=== PATIENT | male | born 1975 | race Caucasian/White ===

== ENCOUNTER 2018-01-22 10:22 | Inpatient (IN) | payer MEDICARE, OTHER ==
[~2018-01-22] VITALS: Ht 160 cm; Wt 150.1 kg
[2018-01-22] MEDS ORDERED: 1/2 NS IV SOLUTION 1,000 ML IV PRN (10:40)
[2018-01-22] MEDS ORDERED: POTASSIUM CHLORIDE INJ 20 MEQ in NS IV 1000 ML 1,000 ML IV SCH (10:40)
[2018-01-22] MEDS ORDERED: ONDANSETRON 4 MG (ZOFRAN) ORAL DISSOLVE TAB SL PRN ×2 (10:45→17:30)
[2018-01-22] MEDS ORDERED: ALPRAZolam 0.25 MG (XANAX) TAB PO PRN (10:45)
[2018-01-22] MEDS ORDERED: CALCIUM CARBONATE 500 MG (TUMS) TAB.CHEW PO PRN (10:45)
[2018-01-22] MEDS ORDERED: SENNA W/DOCUSATE (SENOKOT S) TABLET PO PRN (10:45)
[2018-01-22] MEDS ORDERED: ONDANSETRON 4 MG/2 ML (SDV) Z0FRAN IVP PRN (10:45)
[2018-01-22] MEDS ORDERED: DOCUSATE SODIUM 100 MG (COLACE) CAP PO PRN (10:45)
[2018-01-22] MEDS ORDERED: LORazepam INJ 2 MG/ML (ATIVAN) VIAL IM/IV PRN (10:45)
[2018-01-22] MEDS ORDERED: ENOXAPARIN 40 MG/0.4 ML (LOVENOX) SYR SC SCH (10:45)
[2018-01-22] MEDS ORDERED: ONDANSETRON 4 MG/2 ML (SDV) Z0FRAN IV PRN (10:45)
[2018-01-22] MEDS ORDERED: ANTACID SUSP 30 ML UDC (MYLANTA) PO PRN ×2 (10:45→17:00)
[2018-01-22] MEDS ORDERED: LORazepam INJ 2 MG/ML (ATIVAN) VIAL IV PRN (10:45)
[2018-01-22] MEDS ORDERED: ACETAMINOPHEN 500 MG TAB (TYLENOL) PO PRN (10:45)
[2018-01-22] MEDS ORDERED: LORazepam 1 MG (ATIVAN) TAB PO PRN (10:45)
[2018-01-22] MEDS ORDERED: D5 1/2 NS 1000 ML IV SOLUTION 1,000 ML IV PRN (10:45)
[2018-01-22] MEDS ORDERED: FLU QUADRIvalent (5+ YOA) 2018-2019 (AFLURIA) 0.5 ML IM ONE ×2 (12:45→14:51)
[2018-01-22 13:00] LABS: BILIRUBIN,URINE NEGATIVE (NEGATIVE); CLARITY,URINE CLEAR; COLOR,URINE YELLOW; GLUCOSE, URINE (UA) NEGATIVE (NEGATIVE); KETONES,URINE NEGATIVE (NEGATIVE); LEUKOCYTE ESTERASE ,URINE NEGATIVE (NEGATIVE); NITRITE,URINE NEGATIVE (NEGATIVE); PH,URINE 5 (5-9); PROTEIN,URINE NEGATIVE (NEGATIVE); UROBILINOGEN,URINE NORMAL (NORMAL)
[2018-01-22 13:08] LABS: BACTERIA,URINE NEGATIVE /HPF; SQUAMOUS EPITHELIAL CELL,UR 0-2 /HPF; WBC,URINE RARE /HPF
[2018-01-22] MEDS ORDERED: BUSP10TA95 PO (13:54)
[2018-01-22] MEDS ORDERED: TIZA4TAB3 PO (13:54)
[2018-01-22] MEDS ORDERED: FLUT1DIS26 IH (13:54)
[2018-01-22] MEDS ORDERED: PALI234D IM (13:54)
[2018-01-22] MEDS ORDERED: IBUP-30 PO (13:54)
[2018-01-22] MEDS ORDERED: GABA800T2 PO (13:54)
[2018-01-22] MEDS ORDERED: ASPI-920 PO (13:54)
[2018-01-22] MEDS ORDERED: OXYC20OR15 PO (13:54)
[2018-01-22] MEDS ORDERED: FLUT16SP22 NS (13:54)
[2018-01-22] MEDS ORDERED: MELA5CAP PO (13:54)
[2018-01-22] MEDS ORDERED: UMEC62.5 IH (13:54)
[2018-01-22] MEDS ORDERED: SODI45SP9 NS (13:54)
[2018-01-22] MEDS ORDERED: MAG30ORA2 PO (13:54)
[2018-01-22] MEDS ORDERED: ONDA4TAB8 SL (13:54)
[2018-01-22] MEDS ORDERED: INSU100I29 SQ (13:54)
[2018-01-22] MEDS ORDERED: RANI150T90 PO (13:54)
[2018-01-22] MEDS ORDERED: MAGN400O7 PO (13:54)
[2018-01-22] MEDS ORDERED: LISI40TA PO (13:54)
[2018-01-22] MEDS ORDERED: GLUC1KIT IM (13:54)
[2018-01-22] MEDS ORDERED: CLOZ25TA3 PO (13:54)
[2018-01-22] MEDS ORDERED: INSU100I14 SQ (13:54)
[2018-01-22] MEDS ORDERED: DULA1.5P2 SQ (13:54)
[2018-01-22] MEDS ORDERED: MULT-406 PO (13:54)
[2018-01-22] MEDS ORDERED: CHLO25TA22 PO (13:54)
[2018-01-22] MEDS ORDERED: GUAI600T43 PO (13:54)
[2018-01-22] MEDS ORDERED: CLON1TAB13 PO (13:54)
[2018-01-22] MEDS ORDERED: SPIR25TA PO (13:54)
[2018-01-22] MEDS ORDERED: ACET325T38 PO (13:54)
[2018-01-22] MEDS ORDERED: CLOZ50TA PO (13:54)
[2018-01-22] MEDS ORDERED: CETI10TA17 PO (13:54)
[2018-01-22] MEDS ORDERED: DICL100G18 TP (13:54)
[2018-01-22] MEDS ORDERED: IPRA3AMP31 NEB (13:54)
[2018-01-22] MEDS ORDERED: ATOR40TA70 PO (13:54)
[2018-01-22] MEDS ORDERED: METO-395 PO (13:54)
[2018-01-22] MEDS ORDERED: BISM262O27 PO (13:54)
[2018-01-22] MEDS ORDERED: ACAM333T8 PO (13:54)
[2018-01-22] MEDS ORDERED: TOPI50TA13 PO (13:54)
[2018-01-22] MEDS ORDERED: CELE200C PO (13:54)
[2018-01-22] MEDS: NS W/KCL 20 MEQ/L 1,000 ML IV SCH ×2 (14:43→23:39)
[2018-01-22] MEDS: fentaNYL INJECTION 100 MCG/2 ML AMP IVP PRN ×2 (14:43→18:06)
[2018-01-22] MEDS: ENOXAPARIN 60 MG/0.6 ML (LOVENOX) SYR SC SCH ×2 (14:55→23:38)
[2018-01-22 16:18] VITALS: BP 133/82
[2018-01-22] MEDS ORDERED: DICLOFENAC SODIUM 4 GM TP PRN (17:00)
[2018-01-22] MEDS ORDERED: BISMUTH SUBSALICYLATE PO PRN (17:00)
[2018-01-22] MEDS ORDERED: MILK OF MAGNESIA 400 MG/5 ML 30 ML UDC PO PRN (17:00)
[2018-01-22] MEDS ORDERED: CITRIC ACID PO PRN (17:00)
[2018-01-22] MEDS ORDERED: NON-FORMULARY MEDICATION 1 EA EA (Gabapentin 800 MG) PO SCH (17:00)
[2018-01-22] MEDS ORDERED: NON-FORMULARY MEDICATION 1 EA EA (Clozapine 50 MG) PO SCH (17:00)
[2018-01-22] MEDS ORDERED: ONDANSETRON 4 MG SL PRN (17:00)
[2018-01-22] MEDS ORDERED: SOD BICARB PO PRN (17:00)
[2018-01-22] MEDS ORDERED: SODIUM CHLORIDE NS PRN (17:00)
[2018-01-22] MEDS ORDERED: NON-FORMULARY MEDICATION 1 EA EA (Melatonin 5 MG) PO PRN (17:00)
[2018-01-22] MEDS ORDERED: ACETAMINOPHEN 325 MG TABLET PO PRN (17:00)
[2018-01-22] MEDS ORDERED: [UNRECOGNIZED DRUG - OTHER] NS PRN (17:00)
[2018-01-22] MEDS ORDERED: [UNRECOGNIZED DRUG - OTHER] PO PRN (17:00)
[2018-01-22] MEDS ORDERED: RT-ALBUTEROL/IPRATROPIUM 3 ML (DUONEB) VIAL INH PRN (17:00)
[2018-01-22] MEDS ORDERED: ASPIRIN PO PRN (17:00)
[2018-01-22] MEDS ORDERED: OXYCODONE PO SCH (17:00)
[2018-01-22] MEDS ORDERED: NON-FORMULARY MEDICATION 1 EA EA (Buspirone HCl 20 MG) PO SCH (17:00)
[2018-01-22] MEDS ORDERED: PALIPERIDONE PALMITATE 234 MG IM SCH (17:00)
--- NOTE | 2018-01-22 17:03 | History & Physical-Hospitalist ---
History of Present Illness HPI/Chief Complaint CC: Hyponatremia at 112 HPI: This is a 42yoWM new resident of [facility] as of 2 weeks ago to be closer to his sister who lives in [place] who moved from [place], [place] and also has a guardian who was admitted after Reba Mastersan called me for a direct admit after baseline labs revealed sodium level was 112. Pt was maintained on his regular meds and [facility] had no prior lab levels but he was maintained on Chlorthalidone 25mg which has been stopped. Pt ceased ETOH use 5 yrs ago but he does smoke and does not use a CPAP which appears that he has undx SADA due to his habitus. Patient was restarted on all of his home meds except any and all meds that could have contributed to the low sodium level. He is unsure if he has had this issue before. Source: patient, RN/MD Exam Limitations: no limitations Date Seen 01/22/18 Time Seen by a Provider: 16:45 Attending Physician Malini Rae DO [facility] Referring Physician Date of Admission Jan 22, 2018 at 11:53 Home Medications & Allergies Home Medications Reviewed patient Home Medication Reconciliation performed by pharmacy medication reconciliations instrument and control technician and/or nursing. Patients Allergies have been reviewed. Allergies Allergies Coded Allergies pecan nut (Verified Allergy, Unknown, 01/22/18) tramadol (Verified Allergy, Unknown, 01/22/18) walnut (Verified Allergy, Unknown, 01/22/18) Past Qixbcsg-Cfuqim-Ufkqfj Hx Past Med/Social Hx: Reviewed Nursing Past Med/Soc Hx, Reviewed and Corrections made Patient Social History Marrital Status: single Employed/Student: unemployed Alcohol Use: Past History Number of Drinks Today: 0 Recreational Drug Use: Yes (Marijuana) Drug of Choice: Marijuana Smoking Status: Current Everyday Smoker Type Used: Cigarettes Physical Abuse Screen: No Sexual Abuse: No Recent Foreign Travel: No Contact w/other who traveled: No Recent Hopitalizations: No Recent Infectious Disease Expo: No Immunizations Up To Date Date of Pneumonia Vaccine: Mar 26, 2013 Seasonal Allergies Seasonal Allergies: Yes Past Medical History Respiratory: Asthma, COPD, Emphysema, Sleep Apnea Currently Using CPAP: No Currently Using BIPAP: No Cardiac: High Cholesterol, Hypertension Neurological: Developmental Disorder Sexually Transmitted Disease: No HIV/AIDS: No Gastrointestinal: Gastroesophageal Reflux, Hepatitis Endocrine: Diabetes, Insulin dep Are Your Blood Sugars Over 250: No Psychosocial: Sleep Difficulties, Anxiety, Bipolar, Depression History of Blood Disorders: No Adverse Reaction to Blood [place]: No Family History Cardiovascular disease 19 FATHER, Onset:40's - 50 Hypertension Review of Systems Constitutional: see HPI, weakness EENTM: no symptoms reported Respiratory: no symptoms reported Cardiovascular: no symptoms reported Gastrointestinal: no symptoms reported Genitourinary: no symptoms reported Musculoskeletal: no symptoms reported Skin: no symptoms reported Psychiatric/Neurological: No Symptoms Reported All Other Systems Reviewed Negative Unless Noted: Yes Physical Exam Physical Exam Vital Signs Vital Signs - First Documented 01/22/18 01/22/18 01/22/18 01/22/18 01/22/18 13:54 14:14 14:26 16:18 20:52 Temp 97.3 Pulse 75 Resp 20 B/P (MAP) 133/82 (99) Pulse Ox 90 O2 Delivery Room Air O2 Flow Rate 2.00 FiO2 21 Capillary Refill : Height, Weight, BMI Height: 5'3.00" Weight: 331lbs. 0.0oz. 150.977255ml; 58.6 BMI Method: General Appearance: No Apparent Distress, WD/WN, Chronically ill, Obese Eyes: Bilateral Eye Normal Inspection, Bilateral Eye PERRL HEENT: PERRL/EOMI, Normal ENT Inspection, Pharynx Normal Neck: Full Range of Motion, Normal Inspection, Non Tender, Supple, Carotid Bruit Respiratory: Chest Non Tender, Lungs Clear, Normal Breath Sounds, No Accessory Muscle Use, No Respiratory Distress Cardiovascular: Regular Rate, Rhythm, No Edema, No Gallop, No JVD, No Murmur, Normal Peripheral Pulses Gastrointestinal: Normal Bowel Sounds, No Organomegaly, No Pulsatile Mass, Non Tender, Soft Back: Normal Inspection, No CVA Tenderness, No Vertebral Tenderness Extremity: Normal Capillary Refill, Normal Inspection, Normal Range of Motion, Non Tender, No Calf Tenderness, No Pedal Edema Neurologic/Psychiatric: Alert, Oriented x3, No Motor/Sensory Deficits, Normal Mood/Affect Skin: Normal Color, Warm/Dry Lymphatic: No Adenopathy Results Results/Procedures Labs Laboratory Tests 01/22/18 20:12 Patient resulted labs reviewed. Assessment/Plan Admission Diagnosis Assessment: Severe hyponatremia of 112 on baseline labs Schizophrenia Chronic disability COPD Current smoker Presumed SADA Morbid obesity Chronic pain DM insulin dependent Plan: Fluid restriction 800cc IVF NS Home meds Hold Chlorthalidone Admission Status: Inpatient Order (span 2 midnights) Reason for Inpatient Admission: Severe hyponatremia of 112 will require 3 days of IVF Diagnosis/Problems Diagnosis/Problems (1) Hyponatremia Status: Acute (2) Schizophrenia Status: Chronic Qualifiers: Schizophrenia type: unspecified Qualified Codes: F20.9 - Schizophrenia, unspecified (3) COPD (chronic obstructive pulmonary disease) Status: Chronic Qualifiers: COPD type: unspecified COPD Qualified Codes: J44.9 - Chronic obstructive pulmonary disease, unspecified (4) SADA (obstructive sleep apnea) Status: Chronic (5) Obesity Status: Chronic Qualifiers: Obesity type: due to excess calories Obesity classification: adult class 3 (BMI >= 40) Serious obesity comorbidity presence: with serious comorbidity Body mass index: BMI 50.0-59.9 Qualified Codes: E66.01 - Morbid (severe) obesity due to excess calories; Z68.43 - Body mass index (BMI) 50-59.9, adult Clinical Quality Measures DVT/VTE Risk/Contraindication: Risk Factor Score Per Nursin RFS Level Per Nursing on Admit: 4+=Very High MALINI RAE DO Jan 22, 2018 17:03
[2018-01-22] MEDS ORDERED: DICLOFENAC 1% GEL 100 GM (VOLTAREN) TUBE TOP PRN (17:15)
[2018-01-22] MEDS ORDERED: SALINE NASAL SPRAY (OCEAN) 45 ML BTL PRN (17:15)
[2018-01-22] MEDS ORDERED: MELATONIN 3 MG TABLET PO PRN (17:30)
[2018-01-22] MEDS ORDERED: ONDANSETRON 4 MG (ZOFRAN) ORAL DISSOLVE TAB PO PRN (17:30)
[2018-01-22] MEDS ORDERED: BISMUTH SUBSALICYLATE 240 ML (PEPTO BISMOL) PO PRN (17:45)
[2018-01-22] MEDS: GABAPENTIN 400 MG (NEURONTIN) CAP PO SCH (18:03)
[2018-01-22] MEDS: cloZAPine 25 MG (CLOZARIL) TAB PO SCH (18:03)
[2018-01-22 20:10] VITALS: BP 128/72
[2018-01-22 20:23] LABS: BASOPHILS % (AUTO) 0 % (0-10); EOSINOPHILS # (AUTO) 0.1 10^3/uL (0.0-0.3); EOSINOPHILS % (AUTO) 1 % (0-10); HEMATOCRIT 32 % (40-54); HEMOGLOBIN 11.3 G/DL (13.3-17.7); LYMPHOCYTES # (AUTO) 1.4 X 10^3 (1.0-4.0); LYMPHOCYTES % (AUTO) 17 % (12-44); MEAN CORPUSCULAR HEMOGLOBIN 29 PG (25-34); MEAN CORPUSCULAR HGB CONC 36 G/DL (32-36); MEAN CORPUSCULAR VOLUME 82 FL (80-99); MEAN PLATELET VOLUME 10.4 FL (7.4-10.4); MONOCYTES # (AUTO) 0.6 X 10^3 (0.0-1.0); MONOCYTES % (AUTO) 8 % (0-12); NEUTROPHILS # (AUTO) 6.3 X 10^3 (1.8-7.8); NEUTROPHILS % (AUTO) 75 % (42-75); PLATELET COUNT 235 10^3/uL (130-400); RED CELL DISTRIBUTION WIDTH 14.9 % (10.0-14.5); WHITE BLOOD COUNT 8.4 10^3/uL (4.3-11.0)
[2018-01-22 20:39] LABS: INR 1.1 (0.8-1.4); PROTHROMBIN TIME PATIENT 13.8 SEC (12.2-14.7)
[2018-01-22 20:48] LABS: ALANINE AMINOTRANSFERASE 37 U/L (0-55); ALBUMIN 4.2 GM/DL (3.2-4.5); ALKALINE PHOSPHATASE 65 U/L (40-136); BILIRUBIN,TOTAL 0.5 MG/DL (0.1-1.0); BUN/CREATININE RATIO 11; CALCIUM 9.7 MG/DL (8.5-10.1); CARBON DIOXIDE 27 MMOL/L (21-32); CHLORIDE 85 MMOL/L (98-107); GFR ESTIMATED > 60; GLUCOSE 166 MG/DL (70-105); POTASSIUM 3.7 MMOL/L (3.6-5.0); TOTAL PROTEIN 6.9 GM/DL (6.4-8.2)
[2018-01-22] MEDS: RT-ALBUTEROL/IPRATROPIUM 3 ML (DUONEB) VIAL INH SCH (20:50)
[2018-01-22] MEDS: RT-ADVAIR HFA 115/21 MCG PER PUFF IH SCH (20:50)
[2018-01-22 20:51] LABS: SODIUM 125 MMOL/L (135-145)
[2018-01-22] MEDS ORDERED: NON-FORMULARY MEDICATION 1 EA EA (Ranitidine HCl (Acid Reducer (RANITIDINE)) 150 MG) PO SCH (21:00)
[2018-01-22] MEDS ORDERED: ACAMPROSATE CALCIUM PO SCH (21:00)
[2018-01-22] MEDS ORDERED: INSULIN DETEMIR 54 UNIT SQ SCH (21:00)
[2018-01-22] MEDS ORDERED: NON-FORMULARY MEDICATION 1 EA EA (Clonazepam 1 MG) PO SCH (21:00)
[2018-01-22] MEDS ORDERED: NON-FORMULARY MEDICATION 1 EA EA (Ibuprofen (Advil) 400 MG) PO SCH (21:00)
[2018-01-22] MEDS ORDERED: NON-FORMULARY MEDICATION 1 EA EA (Fluticasone/Salmeterol (Advair 250-50 Diskus) 1 PUFF) IH SCH (21:00)
[2018-01-22] MEDS: guaiFENesin (MUCINEX) 600 MG TAB PO SCH (21:35)
[2018-01-22] MEDS: MAGNESIUM OXIDE (MAG-OX)400 MG TAB PO SCH (21:35)
[2018-01-22] MEDS: meTOprolol SUCCINATE 100 MG (TOPROL XL) TAB PO SCH (21:35)
[2018-01-22] MEDS: ATORVASTATIN 40 MG (LIPITOR) TABLET PO SCH (21:35)
[2018-01-22] MEDS: busPIRone 10 MG (BUSPAR) TAB PO SCH (21:35)
[2018-01-22] MEDS: lisINopril 40 MG (PRINIVIL) TABLET PO SCH (21:35)
[2018-01-22] MEDS: clonazePAM 1 MG (KlonoPIN) TAB PO SCH (21:35)
[2018-01-22] MEDS: inSUlin DETERMIR 1 UNIT/0.01 ML (LEVEMIR) CHARGE PER UNIT SQ SCH (21:38)
[2018-01-22] MEDS: inSUlin ASPART (NovoLOG) 1 UNIT/0.01 ML (CHARGE PER UNIT) SC SCH (21:38)
[2018-01-22] MEDS: oxyCODONE 20 MG/1 ML ORAL CONC (RoxiCODONE) CHARGE PER 1 ML PO SCH (23:38)
[2018-01-23 00:04] VITALS: BP 137/64
[2018-01-23] MEDS: RT-ALBUTEROL/IPRATROPIUM 3 ML (DUONEB) VIAL INH SCH ×4 (02:36→18:39)
[2018-01-23 04:00] VITALS: BP 102/55
[2018-01-23] MEDS: oxyCODONE 20 MG/1 ML ORAL CONC (RoxiCODONE) CHARGE PER 1 ML PO SCH ×4 (04:12→23:22)
[2018-01-23] MEDS: fentaNYL INJECTION 100 MCG/2 ML AMP IVP PRN ×5 (04:12→21:20)
[2018-01-23 05:56] LABS: BASOPHILS % (AUTO) 0 % (0-10); EOSINOPHILS % (AUTO) 1 % (0-10); HEMATOCRIT 36 % (40-54); HEMOGLOBIN 11.8 G/DL (13.3-17.7); LYMPHOCYTES # (AUTO) 0.8 X 10^3 (1.0-4.0); LYMPHOCYTES % (AUTO) 10 % (12-44); MEAN CORPUSCULAR HEMOGLOBIN 28 PG (25-34); MEAN CORPUSCULAR HGB CONC 33 G/DL (32-36); MEAN CORPUSCULAR VOLUME 84 FL (80-99); MEAN PLATELET VOLUME 10.7 FL (7.4-10.4); MONOCYTES # (AUTO) 0.7 X 10^3 (0.0-1.0); MONOCYTES % (AUTO) 8 % (0-12); NEUTROPHILS # (AUTO) 6.6 X 10^3 (1.8-7.8); NEUTROPHILS % (AUTO) 82 % (42-75); PLATELET COUNT 249 10^3/uL (130-400); RED BLOOD COUNT 4.25 10^6/uL (4.35-5.85); RED CELL DISTRIBUTION WIDTH 14.9 % (10.0-14.5); WHITE BLOOD COUNT 8.1 10^3/uL (4.3-11.0)
[2018-01-23] MEDS ORDERED: NON-FORMULARY MEDICATION 1 EA EA (Insulin Aspart (Novolog Flexpen) 8 UNITS) SQ SCH (06:00)
[2018-01-23] MEDS: inSUlin ASPART (NovoLOG) 1 UNIT/0.01 ML (CHARGE PER UNIT) SC SCH ×7 (06:12→21:15)
[2018-01-23] MEDS: MULTIVIT W/MINERALS TAB (THERAGRAN M) PO SCH (06:12)
[2018-01-23] MEDS: THIAMINE 100 MG (VITAMIN B-1) TAB PO SCH (06:12)
[2018-01-23 06:20] LABS: ALANINE AMINOTRANSFERASE 40 U/L (0-55); ALBUMIN 4.4 GM/DL (3.2-4.5); ALKALINE PHOSPHATASE 72 U/L (40-136); BILIRUBIN,TOTAL 0.4 MG/DL (0.1-1.0); BUN/CREATININE RATIO 11; CARBON DIOXIDE 28 MMOL/L (21-32); CHLORIDE 91 MMOL/L (98-107); CREATININE SERUM 0.83 MG/DL (0.60-1.30); GFR ESTIMATED > 60; GLUCOSE 146 MG/DL (70-105); POTASSIUM 4.5 MMOL/L (3.6-5.0); SODIUM 130 MMOL/L (135-145); TOTAL PROTEIN 7.2 GM/DL (6.4-8.2)
[2018-01-23] MEDS ORDERED: MULTIVIT W/MINERALS TAB (THERAGRAN M) PO SCH (07:00)
[2018-01-23] MEDS: CELECOXIB 100 MG (CeleBREX) CAP PO SCH (07:40)
[2018-01-23] MEDS: NS W/KCL 20 MEQ/L 1,000 ML IV SCH ×2 (07:40→12:56)
[2018-01-23 08:52] VITALS: BP 134/74
[2018-01-23] MEDS: RT-ADVAIR HFA 115/21 MCG PER PUFF IH SCH ×2 (08:56→18:40)
[2018-01-23] MEDS ORDERED: NON-FORMULARY MEDICATION 1 EA EA (Topiramate 50 MG) PO SCH (09:00)
[2018-01-23] MEDS ORDERED: CLOZAPINE 25 MG PO SCH (09:00)
[2018-01-23] MEDS ORDERED: MULTIVITAMIN WITH MINERALS PO SCH (09:00)
[2018-01-23] MEDS ORDERED: UMECLIDINIUM BROMIDE (INCRUSE ELLIPTA) 7'S IH SCH (09:00)
[2018-01-23] MEDS ORDERED: NON-FORMULARY MEDICATION 1 EA EA (Celecoxib (Celebrex) 200 MG) PO SCH (09:00)
[2018-01-23] MEDS ORDERED: NON-FORMULARY MEDICATION 1 EA EA (Cetirizine HCl 10 MG) PO SCH (09:00)
[2018-01-23] MEDS: guaiFENesin (MUCINEX) 600 MG TAB PO SCH ×2 (09:51→21:19)
[2018-01-23] MEDS: inSUlin DETERMIR 1 UNIT/0.01 ML (LEVEMIR) CHARGE PER UNIT SQ SCH ×2 (09:52→21:18)
[2018-01-23] MEDS: LORATADINE (CLARITIN) 10 MG TAB PO SCH (09:52)
[2018-01-23] MEDS: lisINopril 40 MG (PRINIVIL) TABLET PO SCH ×2 (09:52→21:19)
[2018-01-23] MEDS: FOLIC ACID 1 MG TAB PO SCH (09:52)
[2018-01-23] MEDS: clonazePAM 1 MG (KlonoPIN) TAB PO SCH ×2 (09:53→21:19)
[2018-01-23] MEDS: cloZAPine 25 MG (CLOZARIL) TAB PO SCH ×2 (09:53→17:16)
[2018-01-23] MEDS: GABAPENTIN 400 MG (NEURONTIN) CAP PO SCH ×3 (09:53→17:16)
[2018-01-23] MEDS: meTOprolol SUCCINATE 100 MG (TOPROL XL) TAB PO SCH ×2 (09:53→21:19)
[2018-01-23] MEDS: busPIRone 10 MG (BUSPAR) TAB PO SCH ×4 (09:53→21:19)
[2018-01-23] MEDS: MAGNESIUM OXIDE (MAG-OX)400 MG TAB PO SCH ×2 (09:53→21:19)
[2018-01-23] MEDS: FLUTICASONE NASAL SPRAY (FLONASE) 16 GM BTL NS SCH (09:55)
[2018-01-23] MEDS: toPIRamate 25 MG (TOPAMAX) TAB PO SCH (09:57)
[2018-01-23 12:00] VITALS: BP 144/71
[2018-01-23] MEDS ORDERED: NON-FORMULARY MEDICATION 1 EA EA (Dulaglutide (Trulicity) 1.5 MG) SQ SCH (12:00)
[2018-01-23] MEDS: ENOXAPARIN 60 MG/0.6 ML (LOVENOX) SYR SC SCH ×2 (12:08→23:19)
--- NOTE | 2018-01-23 15:17 | Progress Note (SOAP) ---
Subjective Subjective/Events-last exam Reports feeling well. States he did not really feel poorly prior to admission. Admits to drinking a lot of tea. Review of Systems Date Seen by Provider: Jan 23, 2018 Time Seen by Provider: 10:30 Objective Exam Last Set of Vital Signs Vital Signs Date Time Temp Pulse Resp B/P (MAP) Pulse Ox O2 Delivery O2 Flow Rate FiO2 01/23/18 13:43 97.9 01/23/18 13:00 95 01/23/18 12:00 16 144/71 (95) 92 Room Air 01/23/18 08:52 3.50 01/22/18 14:26 21 Capillary Refill : I&O Intake and Output 01/23/18 00:00 Intake Total 1500 ml Output Total 950 ml Balance 550 ml Intake Oral 500 ml IV Total 1000 ml Output Urine Total 950 ml Daily Weight Change Yes, 14-23 lbs General: Alert, Oriented X3, Cooperative Psych/Mental Status: Mood NL Results/Procedures Lab Laboratory Tests 01/22/18 20:12: White Blood Count 8.4, Red Blood Count 3.90L, Hemoglobin 11.3L, Hematocrit 32L, Mean Corpuscular Volume 82, Mean Corpuscular Hemoglobin 29, Mean Corpuscular Hemoglobin Concent 36, Red Cell Distribution Width 14.9H, Platelet Count 235, Mean Platelet Volume 10.4, Neutrophils (%) (Auto) 75, Lymphocytes (%) (Auto) 17 , Monocytes (%) (Auto) 8, Eosinophils (%) (Auto) 1, Basophils (%) (Auto) 0, Neutrophils # (Auto) 6.3, Lymphocytes # (Auto) 1.4, Monocytes # (Auto) 0.6, Eosinophils # (Auto) 0.1, Basophils # (Auto) 0.0, Prothrombin Time 13.8, INR Comment 1.1, Activated Partial Thromboplast Time 32, Sodium Level 125*L, Potassium Level 3.7, Chloride Level 85L, Carbon Dioxide Level 27, Anion Gap 13, Blood Urea Nitrogen 9, Creatinine 0.80, Estimat Glomerular Filtration Rate > 60 , BUN/Creatinine Ratio 11, Glucose Level 166H, Calcium Level 9.7, Corrected Calcium 9.5, Total Bilirubin 0.5, Aspartate Amino Transf (AST/SGOT) 27, Alanine Aminotransferase (ALT/SGPT) 37, Alkaline Phosphatase 65, Total Protein 6.9, Albumin 4.2, Serum Alcohol < 10 01/22/18 20:39: Glucometer 170H 01/23/18 05:15: White Blood Count 8.1, Red Blood Count 4.25L, Hemoglobin 11.8L, Hematocrit 36L, Mean Corpuscular Volume 84, Mean Corpuscular Hemoglobin 28, Mean Corpuscular Hemoglobin Concent 33, Red Cell Distribution Width 14.9H, Platelet Count 249, Mean Platelet Volume 10.7H, Neutrophils (%) (Auto) 82H, Lymphocytes (%) (Auto) 10L, Monocytes (%) (Auto) 8, Eosinophils (%) (Auto) 1, Basophils (%) (Auto) 0, Neutrophils # (Auto) 6.6, Lymphocytes # (Auto) 0.8L, Monocytes # (Auto) 0.7, Eosinophils # (Auto) 0.0, Basophils # (Auto) 0.0, Sodium Level 130L, Potassium Level 4.5, Chloride Level 91L, Carbon Dioxide Level 28, Anion Gap 11, Blood Urea Nitrogen 9, Creatinine 0.83, Estimat Glomerular Filtration Rate > 60, BUN/ Creatinine Ratio 11, Glucose Level 146H, Calcium Level 10.0, Corrected Calcium 9.7, Total Bilirubin 0.4, Aspartate Amino Transf (AST/SGOT) 29, Alanine Aminotransferase (ALT/SGPT) 40, Alkaline Phosphatase 72, Total Protein 7.2, Albumin 4.4 01/23/18 05:47: Glucometer 144H 01/23/18 11:00: Glucometer 154H Assessment/Plan Assessment/Plan Assessment & Plan Severe hyponatremia of 112 on baseline labs -Fluid restriction 800cc -IVF NS -Home meds -Hold Chlorthalidone 01/23 - Na improved to 130, will DC NS; likely ready for DC tomorrow Schizophrenia Chronic disability COPD Current smoker Presumed SADA Morbid obesity Chronic pain DM insulin dependent Clinical Quality Measures DVT/VTE Risk/Contraindication: Risk Factor Score Per Nursin RFS Level Per Nursing on Admit: 4+=Very High POLLO SHI DO Jan 23, 2018 15:17
[2018-01-23 16:20] VITALS: BP 107/58
[2018-01-23 20:00] VITALS: BP 122/71
[2018-01-23] MEDS: ATORVASTATIN 40 MG (LIPITOR) TABLET PO SCH (21:19)
[2018-01-24] VITALS: BP 103/52
[2018-01-24] MEDS: fentaNYL INJECTION 100 MCG/2 ML AMP IVP PRN ×2 (01:22→06:49)
[2018-01-24] MEDS: RT-ALBUTEROL/IPRATROPIUM 3 ML (DUONEB) VIAL INH SCH ×3 (02:27→15:05)
[2018-01-24 04:14] VITALS: BP 118/60
[2018-01-24] MEDS: oxyCODONE 20 MG/1 ML ORAL CONC (RoxiCODONE) CHARGE PER 1 ML PO SCH ×2 (05:16→11:59)
[2018-01-24] MEDS: MULTIVIT W/MINERALS TAB (THERAGRAN M) PO SCH (06:48)
[2018-01-24] MEDS: THIAMINE 100 MG (VITAMIN B-1) TAB PO SCH (06:48)
[2018-01-24] MEDS: inSUlin ASPART (NovoLOG) 1 UNIT/0.01 ML (CHARGE PER UNIT) SC SCH ×4 (06:50→12:09)
[2018-01-24] MEDS: RT-ADVAIR HFA 115/21 MCG PER PUFF IH SCH (07:24)
[2018-01-24 08:00] VITALS: BP 109/56
[2018-01-24 08:18] LABS: BUN/CREATININE RATIO 11; CALCIUM 9.8 MG/DL (8.5-10.1); CARBON DIOXIDE 27 MMOL/L (21-32); CHLORIDE 97 MMOL/L (98-107); CREATININE SERUM 1.25 MG/DL (0.60-1.30); GFR ESTIMATED > 60; GLUCOSE 172 MG/DL (70-105); POTASSIUM 4.5 MMOL/L (3.6-5.0); SODIUM 134 MMOL/L (135-145)
[2018-01-24] MEDS: CELECOXIB 100 MG (CeleBREX) CAP PO SCH (08:21)
[2018-01-24] MEDS ORDERED: FUROSEMIDE 40 MG/4 ML INJ (LASIX) IVP NR (08:45)
[2018-01-24 09:13] VITALS: BP 109/56
[2018-01-24] MEDS: inSUlin DETERMIR 1 UNIT/0.01 ML (LEVEMIR) CHARGE PER UNIT SQ SCH (09:52)
[2018-01-24] MEDS: guaiFENesin (MUCINEX) 600 MG TAB PO SCH (09:53)
[2018-01-24] MEDS: clonazePAM 1 MG (KlonoPIN) TAB PO SCH (09:53)
[2018-01-24] MEDS: GABAPENTIN 400 MG (NEURONTIN) CAP PO SCH ×2 (09:53→12:09)
[2018-01-24] MEDS: busPIRone 10 MG (BUSPAR) TAB PO SCH ×2 (09:54→14:12)
[2018-01-24] MEDS: LORATADINE (CLARITIN) 10 MG TAB PO SCH (09:54)
[2018-01-24] MEDS: MAGNESIUM OXIDE (MAG-OX)400 MG TAB PO SCH (09:54)
[2018-01-24] MEDS: toPIRamate 25 MG (TOPAMAX) TAB PO SCH (09:54)
[2018-01-24] MEDS: FOLIC ACID 1 MG TAB PO SCH (09:54)
[2018-01-24] MEDS: meTOprolol SUCCINATE 100 MG (TOPROL XL) TAB PO SCH (09:54)
[2018-01-24] MEDS: lisINopril 40 MG (PRINIVIL) TABLET PO SCH (09:54)
[2018-01-24] MEDS: cloZAPine 25 MG (CLOZARIL) TAB PO SCH (09:54)
[2018-01-24] MEDS: FLUTICASONE NASAL SPRAY (FLONASE) 16 GM BTL NS SCH (09:55)
--- NOTE | 2018-01-24 10:24 | Diagnostic Imaging Report ---
Indication: Wheezing and hyponatremia. PA and lateral views of the chest are obtained. There is no previous study available at this time for comparison. Heart size and pulmonary vascularity are within normal limits. There is no evidence of overt edema. No pneumothorax or pleural fluid is identified. There may be old fracture deformities involving the lateral aspect of ribs bilaterally however these are not well delineated on the chest radiograph. Impression: No acute abnormality is detected. Dictated by: Dictated on workstation # [id number]
--- NOTE | 2018-01-24 11:13 | Discharge Instructions ---
Discharge [facility] Discharge Medications Continued Medications: Acamprosate Calcium (Acamprosate Calcium) 333 Mg Tablet.dr 2 TAB PO TID, TAB Acetaminophen (Tylenol) 325 Mg Tablet 650 MG PO Q6H PRN for PAIN-MILD, TAB TAKES 2 (325MG) TABLETS Aspirin/Sod Bicarb/Citric Acid ([place] Original Tab Eff) 1 Each Tablet.eff 2 TAB PO Q4H PRN for INDIGESTION, TAB Atorvastatin Calcium (Atorvastatin Calcium) 40 Mg Tablet 40 MG PO HS, TAB Bismuth Subsalicylate (Pepto-Bismol) 262 Mg/15 Ml Oral.susp 15 ML PO Q6H PRN for STOMACH UPSET, ML Buspirone HCl (Buspirone HCl) 10 Mg Tablet 20 MG PO QID, TAB TAKES 2 (10MG) TABLETS Celecoxib (Celebrex) 200 Mg Capsule 200 MG PO DAILY, CAP Cetirizine HCl (Cetirizine HCl) 10 Mg Tablet 10 MG PO DAILY, TAB Clonazepam (Clonazepam) 1 Mg Tablet 1 MG PO BID, TAB Clozapine (Clozapine) 25 Mg Tablet 25 MG PO DAILY, TAB Clozapine (Clozapine) 50 Mg Tablet 50 MG PO 1700, TAB Diclofenac Sodium (Voltaren) 100 Gm Gel..gram. 4 GM TP Q12H PRN for JOINT PAIN, TUBE Dulaglutide (Trulicity) 1.5 Mg/0.5 Ml Pen.injctr 1.5 MG SQ We@1200, VIAL Fluticasone Propionate (Fluticasone Propionate) 16 Gm [place].susp 2 SPRAYS NS DAILY, SPRAY Fluticasone/Salmeterol (Advair 250-50 Diskus) 1 Each Blst.w.dev 1 PUFF IH BID, INHALER Gabapentin (Gabapentin) 800 Mg Tablet 800 MG PO 0900,1200,1700, TAB Glucagon,Human Recombinant (Glucagon Emergency Kit) 1 Mg/Kit Soln 1 MG IM UD PRN for BS<50, EA Guaifenesin (Mucinex) 600 Mg Tab.er.12h 900 MG PO BID, TAB TAKES 1 & 1/2 (600MG) TABLET Insulin Aspart (Novolog Flexpen) 300 Units/3 Ml Solution 8 UNITS SQ TIDAC, EA Insulin Detemir (Levemir Flextouch) 100 Unit/1 Ml Insuln.pen 54 UNIT SQ BID, EA Ipratropium/Albuterol Sulfate (Iprat-Albut 0.5-3(2.5) mg/3 ml) 3 Ml Ampul.neb 3 ML NEB Q6H PRN for SHORTNESS OF BREATH, EACH Lisinopril (Lisinopril) 40 Mg Tablet 40 MG PO BID, TAB Mag Hydrox/Al Hydrox/Simeth (Mylanta Suspension) 30 Ml Oral.susp 10 ML PO Q6H PRN for INDIGESTION, ML Magnesium Hydroxide (Milk of Magnesia) 400 Mg/5 Ml Oral.susp 30 ML PO DAILY PRN for CONSTIPATION-7TH LINE, ML Melatonin (Melatonin) 5 Mg Capsule 5 MG PO HS PRN for SLEEP, CAP Metoprolol Succinate (Metoprolol Succinate) 100 Mg Tab.er.24h 100 MG PO BID, TAB Multivitamin with Minerals (Men's One Daily) 1 Each Tablet 1 TAB PO DAILY, TAB Ondansetron (Zofran Odt) 4 Mg Tab.rapdis 4 MG SL Q8H PRN for NAUSEA/VOMITING-1ST LINE, TAB Oxycodone HCl (Oxycodone HCl) 20 Mg/1 Ml Oral.conc 0.25 ML PO 0500,1100,1700,2300, ML Paliperidone Palmitate (Invega Sustenna) 234 Mg/1.5 Ml Syringe 234 MG IM MONTHLY ON THE , SYRINGE TAKES AT BEDTIME Ranitidine HCl (Acid Tourist Information Assistant (RANITIDINE)) 150 Mg Tablet 150 MG PO BID, TAB Sodium Chloride (Saline Nose [place]) 45 Ml [place] 2 SPRAYS NS Q12H PRN for DRYNESS/CONGESTION, SPRAY Spironolactone (Aldactone) 25 Mg Tablet 25 MG PO DAILY, TAB Tizanidine HCl (Tizanidine HCl) 4 Mg Tablet 4 MG PO 0900,1500,2100, TAB Topiramate (Topiramate) 50 Mg Tablet 50 MG PO DAILY, TAB Umeclidinium [place] (Incruse Ellipta) 62.5 Mcg Blst.w.dev 1 PUFF IH DAILY, INHALER Discontinued Medications: Chlorthalidone (Chlorthalidone) 25 Mg Tablet 25 MG PO DAILY, TAB Ibuprofen (Advil) 200 Mg Tablet 400 MG PO BID, TAB Patient Instructions Goal/Follow Up Appt: Reba with follow-up at [facility] Activity & Diet Discharge Diet: POLLO Sanchez DO Jan 24, 2018 11:13
--- NOTE | 2018-01-24 11:19 | Discharge Summary ---
Diagnosis/Chief Complaint Date of Admission Jan 22, 2018 at 11:53 Date of Discharge Jan 24, 2018 Admission Diagnosis Admission Diagnosis Severe hyponatremia of 112 on baseline labs Schizophrenia Chronic disability COPD Current smoker Presumed SADA Morbid obesity Chronic pain DM insulin dependent Discharge Diagnosis Severe hyponatremia of 112 on baseline labs -Fluid restriction 800cc -IVF NS -Home meds -Hold Chlorthalidone 01/23 - Na improved to 130, will DC NS; likely ready for DC tomorrow 01/24 - Na 134; patient had rhonchi noted this am, CXR negative, BNP normal, 1 dose of Lasix given with improvement to baseline - plan to DC back to [facility]; needs to maintain 800mL fluid restriction - home meds resumed with the exception of chlorthalidone and Ibuprofen (also on Celebrex) - Reba with f/u at facility next week. Schizophrenia Chronic disability COPD Current smoker Presumed SADA Morbid obesity Chronic pain DM insulin dependent Chief Complaint/HPI Chief Complaint/HPI CC: Hyponatremia at 112 HPI: This is a 42[facility]WM [facility] to be closer to his sister who lives in [place] who moved from [place], [place] and also has a guardian who was admitted after Reba Vital called me for a direct admit after baseline labs revealed sodium level was 112. Pt was maintained on his regular meds and [facility] had no prior lab levels but he was maintained on Chlorthalidone 25mg which has been stopped. Pt ceased ETOH use 5 yrs ago but he does smoke and does not use a CPAP which appears that he has undx SADA due to his habitus. Patient was restarted on all of his home meds except any and all meds that could have contributed to the low sodium level. He is unsure if he has had this issue before. Discharge Summary-Simple/Stand Consultations Discharge Physical Examination Allergies: Coded Allergies: pecan nut (Verified Allergy, Unknown, 01/22/18) tramadol (Verified Allergy, Unknown, 01/22/18) walnut (Verified Allergy, Unknown, 01/22/18) Vitals & I&Os Vital Sign - Last 12Hours Date Time Temp Pulse Resp B/P (MAP) Pulse Ox O2 Delivery O2 Flow Rate FiO2 01/24/18 08:55 98.6 01/24/18 08:00 101 24 109/56 (73) 97 Nasal Cannula 2.50 01/22/18 14:26 21 Intake and Output 01/24/18 00:00 Intake Total 1250 ml Output Total 725 ml Balance 525 ml General Appearance: Alert, Oriented X3, Cooperative Respiratory: Clear to Auscultation (with intermittent wheezes) Cardiovascular: Regular Rate Hospital Course See final discharge diagnosis. Discharge Instructions to patient/family Discharge [facility] Discharge Medications Continued Medications: Acamprosate Calcium (Acamprosate Calcium) 333 Mg Tablet.dr 2 TAB PO TID, TAB Acetaminophen (Tylenol) 325 Mg Tablet 650 MG PO Q6H PRN for PAIN-MILD, TAB TAKES 2 (325MG) TABLETS Aspirin/Sod Bicarb/Citric Acid ([place] Original Tab Eff) 1 Each Tablet.eff 2 TAB PO Q4H PRN for INDIGESTION, TAB Atorvastatin Calcium (Atorvastatin Calcium) 40 Mg Tablet 40 MG PO HS, TAB Bismuth Subsalicylate (Pepto-Bismol) 262 Mg/15 Ml Oral.susp 15 ML PO Q6H PRN for STOMACH UPSET, ML Buspirone HCl (Buspirone HCl) 10 Mg Tablet 20 MG PO QID, TAB TAKES 2 (10MG) TABLETS Celecoxib (Celebrex) 200 Mg Capsule 200 MG PO DAILY, CAP Cetirizine HCl (Cetirizine HCl) 10 Mg Tablet 10 MG PO DAILY, TAB Clonazepam (Clonazepam) 1 Mg Tablet 1 MG PO BID, TAB Clozapine (Clozapine) 25 Mg Tablet 25 MG PO DAILY, TAB Clozapine (Clozapine) 50 Mg Tablet 50 MG PO 1700, TAB Diclofenac Sodium (Voltaren) 100 Gm Gel..gram. 4 GM TP Q12H PRN for JOINT PAIN, TUBE Dulaglutide (Trulicity) 1.5 Mg/0.5 Ml Pen.injctr 1.5 MG SQ We@1200, VIAL Fluticasone Propionate (Fluticasone Propionate) 16 Gm [place].susp 2 SPRAYS NS DAILY, SPRAY Fluticasone/Salmeterol (Advair 250-50 Diskus) 1 Each Blst.w.dev 1 PUFF IH BID, INHALER Gabapentin (Gabapentin) 800 Mg Tablet 800 MG PO 0900,1200,1700, TAB Glucagon,Human Recombinant (Glucagon Emergency Kit) 1 Mg/Kit Soln 1 MG IM UD PRN for BS<50, EA Guaifenesin (Mucinex) 600 Mg Tab.er.12h 900 MG PO BID, TAB TAKES 1 & 1/2 (600MG) TABLET Insulin Aspart (Novolog Flexpen) 300 Units/3 Ml Solution 8 UNITS SQ TIDAC, EA Insulin Detemir (Levemir Flextouch) 100 Unit/1 Ml Insuln.pen 54 UNIT SQ BID, EA Ipratropium/Albuterol Sulfate (Iprat-Albut 0.5-3(2.5) mg/3 ml) 3 Ml Ampul.neb 3 ML NEB Q6H PRN for SHORTNESS OF BREATH, EACH Lisinopril (Lisinopril) 40 Mg Tablet 40 MG PO BID, TAB Mag Hydrox/Al Hydrox/Simeth (Mylanta Suspension) 30 Ml Oral.susp 10 ML PO Q6H PRN for INDIGESTION, ML Magnesium Hydroxide (Milk of Magnesia) 400 Mg/5 Ml Oral.susp 30 ML PO DAILY PRN for CONSTIPATION-7TH LINE, ML Melatonin (Melatonin) 5 Mg Capsule 5 MG PO HS PRN for SLEEP, CAP Metoprolol Succinate (Metoprolol Succinate) 100 Mg Tab.er.24h 100 MG PO BID, TAB Multivitamin with Minerals (Men's One Daily) 1 Each Tablet 1 TAB PO DAILY, TAB Ondansetron (Zofran Odt) 4 Mg Tab.rapdis 4 MG SL Q8H PRN for NAUSEA/VOMITING-1ST LINE, TAB Oxycodone HCl (Oxycodone HCl) 20 Mg/1 Ml Oral.conc 0.25 ML PO 0500,1100,1700,2300, ML Paliperidone Palmitate (Invega Sustenna) 234 Mg/1.5 Ml Syringe 234 MG IM MONTHLY ON THE , SYRINGE TAKES AT BEDTIME Ranitidine HCl (Acid Climatology Teacher (RANITIDINE)) 150 Mg Tablet 150 MG PO BID, TAB Sodium Chloride (Saline Nose [place]) 45 Ml [place] 2 SPRAYS NS Q12H PRN for DRYNESS/CONGESTION, SPRAY Spironolactone (Aldactone) 25 Mg Tablet 25 MG PO DAILY, TAB Tizanidine HCl (Tizanidine HCl) 4 Mg Tablet 4 MG PO 0900,1500,2100, TAB Topiramate (Topiramate) 50 Mg Tablet 50 MG PO DAILY, TAB Umeclidinium [place] (Incruse Ellipta) 62.5 Mcg Blst.w.dev 1 PUFF IH DAILY, INHALER Discontinued Medications: Chlorthalidone (Chlorthalidone) 25 Mg Tablet 25 MG PO DAILY, TAB Ibuprofen (Advil) 200 Mg Tablet 400 MG PO BID, TAB Patient Instructions Goal/Follow Up Appt: Reba with follow-up at [facility] Activity & Diet Discharge Diet: ADA Diet Discharge Medications Reviewed and agree with Discharge Medication list on patient's Discharge Instruction sheet Clinical Quality Measures DVT/VTE Risk/Contraindication: Risk Factor Score Per Nursin RFS Level Per Nursing on Admit: 4+=Very High POLLO SHI DO Jan 24, 2018 11:19
[2018-01-24 12:00] VITALS: BP 119/58
[2018-01-24] MEDS: ENOXAPARIN 60 MG/0.6 ML (LOVENOX) SYR SC SCH (12:09)
[2018-01-24 17:06] VITALS: BP 119/58
== END 2018-01-24 17:00 | DRG 641 ==
LOC: 4TH 11:53
PROVIDERS: ADMIT Internal Medicine; ATTEND Internal Medicine
DX: E87.1 Hypo-osmolality and hyponatremia (principal); J43.9 Emphysema, unspecified; Z68.43 Body mass index [BMI] 50.0-59.9, adult; E66.01 Morbid (severe) obesity due to excess calories; I10 Essential (primary) hypertension; E78.00 Pure hypercholesterolemia, unspecified; G47.33 Obstructive sleep apnea (adult) (pediatric); Z23 Encounter for immunization; F17.210 Nicotine dependence, cigarettes, uncomplicated; F89 Unspecified disorder of psychological development; K21.9 Gastro-esophageal reflux disease without esophagitis; E11.9 Type 2 diabetes mellitus without complications; F20.9 Schizophrenia, unspecified; G89.29 Other chronic pain; F41.9 Anxiety disorder, unspecified; F31.9 Bipolar disorder, unspecified; Z79.4 Long term (current) use of insulin; Z86.19 Personal history of other infectious and parasitic diseases
CPT/HCPCS: 36415; 71046; 80048; 80053; 80320; 81000; 82962; 83880; 85025; 85610; 85730; 86703; 90471; 90686; 94640; 94664; 94760

== ENCOUNTER 2018-02-01 15:06 | Emergency (ER) | payer MEDICARE, MEDICAID ==
[~2018-02-01] VITALS: Ht 160 cm; Wt 151.5 kg
[~2018-02-01 15:06] MED LIST: ACAM333T8 PO; ACET325T38 PO; ASPI-920 PO; ATOR40TA70 PO; BISM262O27 PO; BUSP10TA95 PO; CELE200C PO; CETI10TA17 PO; CHLO25TA22 PO; CLON1TAB13 PO; CLOZ25TA3 PO; CLOZ50TA PO; DICL100G18 TP; DULA1.5P2 SQ; FLUT16SP22 NS; FLUT1DIS26 IH; GABA800T2 PO; GLUC1KIT IM; GUAI600T43 PO; IBUP-30 PO; INSU100I14 SQ; INSU100I29 SQ; IPRA3AMP31 NEB; LISI40TA PO; MAG30ORA2 PO; MAGN400O7 PO; MELA5CAP PO; METO-395 PO; MULT-406 PO; ONDA4TAB8 SL; OXYC20OR15 PO; PALI234D IM; RANI150T90 PO; SODI45SP9 NS; SPIR25TA PO; TIZA4TAB3 PO; TOPI50TA13 PO; UMEC62.5 IH
--- OUTSIDE RECORDS SUMMARY | 2018-02-01 15:11 | XMS REPORT ---
Author Author ANGIE HANNON [facility] Address [address] [place] [address] Care Team Providers Care Regional Vice President Life Sales Name Role Phone ANGIE HANNON Unavailable PROBLEMS Type Condition ICD9-CM Code [id number] Code Onset Dates Condition Status SNOMED Code Problem Morbidly obese E66.01 Active 626059246 Problem residential current use of insulin Z79.4 Active 869000598 Problem Hyperlipidemia, unspecified hyperlipidemia type E78.5 Active 35695850 Problem Type 2 diabetes mellitus with diabetic polyneuropathy E11.42 Active 96645636 Problem Schizoaffective disorder, bipolar type F25.0 Active 91543806 Problem Chronic hepatitis C without hepatic coma B18.2 Active 294222605 Problem Other chronic pain G89.29 Active 24703760 Problem Essential hypertension I10 Active 72302675 Problem Gastroesophageal reflux disease without esophagitis K21.9 Active 754027686 Problem Social phobia F40.10 Active 54910935 Problem Bipolar affective disorder, remission status unspecified F31.9 Active 07122933 Problem Antisocial personality disorder F60.2 Active 90930834 Problem Uncomplicated alcohol dependence F10.20 Active 75944573 Problem Bipolar II disorder F31.81 Active 77244275 Problem Schizoaffective disorder, unspecified type F25.9 Active 37607903 Problem Alcohol dependence in remission F10.21 Active 990092616 ALLERGIES No Information ENCOUNTERS Encounter Location Date Diagnosis [facility] [address] [facility] [id number] [id number] Feb, [facility] [address] [address] Jan, [facility] [address] [id number] [address] Jan, [facility] [id number] [place] [address] Jan, [address] [facility] [id number] [address] Jan, [facility] [address] [place] [id number] Dec, [facility] [address] [place] [id number] Dec, [address] [address] [facility] [id number] [address] Dec, Bipolar II disorder F31.81 ; Alcohol dependence in remission F10.21 ; Schizoaffective disorder, unspecified type F25.9 ; Social phobia F40.10 and Antisocial personality disorder F60.2 [facility] [address] [place] [id number] Dec, Type 2 diabetes mellitus with diabetic polyneuropathy E11.42 ; 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 Z79.4 ; Hyperglycemia R73.9 ; Essential hypertension I10 ; Gastroesophageal reflux disease without esophagitis K21.9 ; Hyperlipidemia, unspecified hyperlipidemia type E78.5 ; Chronic hepatitis C without hepatic coma B18.2 ; Morbidly obese E66.01 ; Other chronic pain G89.29 and Schizoaffective disorder, bipolar type F25.0 [place] [address] [facility] [id number] [address] Dec, Schizoaffective disorder, unspecified type F25.9 ; Bipolar affective disorder, remission status unspecified F31.9 ; Social phobia F40.10 ; Antisocial personality disorder F60.2 and Uncomplicated alcohol dependence F10.20 IMMUNIZATIONS No Known Immunizations SOCIAL HISTORY Never Assessed REASON FOR VISIT medication reconciliation-- Via [facility] discharge PLAN OF CARE VITAL SIGNS MEDICATIONS Medication Instructions Dosage Frequency Start Date End Date Duration Status Diclofenac Sodium 1 % as directed Active Mylanta 200-200-20 MG Orally Six times a day 2 tablets between meals and at bedtime as needed 4h Active Ranitidine HCl 150 MG Orally Once a day 1 capsule at bedtime 24h 30 day(s) Active Invega Sustenna 234 MG/1.5ML 1.5 ml 30 day(s) Active Clonazepam 1 MG Orally Once a day 1 tablet 24h Active Oxycodone HCl 100 MG/5ML Orally every 6 hrs 1 ml as needed 6h Active Fluticasone Propionate (Inhal) 50 MCG/BLIST Inhalation Twice a day 1 puff 12h Active Incruse Ellipta 62.5 MCG/INH Inhalation Once a day 1 puff 24h Active Topiramate 50 MG Orally Twice a day 1 tablet 12h 30 day(s) Active Clozapine 25 MG Orally Once a day 1 tablet 24h 30 day(s) Active Gabapentin 800 MG Orally Twice a day 1 tablet 12h 30 day(s) Active Clozapine 50 MG Orally Once a day 1 tablet 24h 30 day(s) Active Deloris-[place] Original 325 MG Orally Twice a day 2 tablets as needed 12h Active BusPIRone HCl 10 MG Orally Twice a day 1 tablet 12h Active Spironolactone 25 MG 1 tablet 30 day(s) Active Celecoxib 200 MG Orally Once a day 1 capsule with food 24h 30 day(s) Active Milk of Magnesia 7.75 % Orally Four times a day 5 ml as needed 6h Active Lisinopril 40 MG Orally Once a day 1 tablet 24h 30 day(s) Active Levemir Flexpen 100 UNIT/ML as directed Active GlucaGen HypoKit 1 MG as directed Active Acamprosate Calcium 333 MG Orally Three times a day 1 tablet 8h 30 day(s) Active Mucinex 600 MG Orally every 12 hrs 1 tablet as needed 12h Active Cetirizine HCl 10 MG Orally Once a day 1 tablet 24h 30 day(s) Active NovoLog Flexpen 100 UNIT/ML as directed Active Metoprolol Succinate ER 100 MG Orally Once a day 1 tablet 24h 30 day( s) Active Pepto-Bismol 262 MG/15ML Orally 8 time(s) a day 30 ml as needed Active Zofran ODT 4 MG Orally every 4 hrs 1 tablet on the tongue and allow to dissolve as needed 4h Active Saline Nasal [place] 0.65 % Nasally every 2 hrs 2 sprays in each nostril as needed Active Melatonin 5 MG Orally Once a day 1 tablet at bedtime as needed with food 24h 30 day(s) Active Trulicity 1.5 MG/0.5ML Subcutaneous once weekly as directed Dec, 5 May, 2018 4 weeks Active Multivitamin - as directed Active DuoNeb 0.5-2.5 (3) MG/3ML Inhalation every 6 hrs 3 ml 6h Active Tizanidine HCl 4 MG Orally Three times a day 1 tablet as needed 8h Active Acetaminophen 325 MG Orally every 4 hrs 1 tablet as needed 4h Active Advair Diskus 250-50 MCG/DOSE as directed Active Atorvastatin Calcium 40 MG Orally Once a day 1 tablet 24h 30 day(s) Active RESULTS No Results PROCEDURES No Known procedures INSTRUCTIONS MEDICATIONS ADMINISTERED No Known Medications MEDICAL (GENERAL) HISTORY Type Description Date Medical History shizoaffective disorder Medical History bipolar disorder Medical History social phobia Medical History antisocial personality disorder Medical History acute hepatitis C Medical History alcohol dependence Medical History pain in thoracic spine Medical History DM type 2 Medical History hyperlipidemia Medical History GERD Medical History HTN Medical History sleep apnea Medical History COPD Surgical History appendix Surgical History hip surgery--bilateral
--- OUTSIDE RECORDS SUMMARY | 2018-02-01 15:11 | XMS REPORT ---
Author Author ANNA MARIE ABDUL [facility] Address [address] [place] [address] Care Team Providers Care Professional Wrestler Name Role Phone ANNA MARIE ABDUL Unavailable PROBLEMS Type Condition ICD9-CM Code [id number] Code Onset Dates Condition Status SNOMED Code Problem Morbidly obese E66.01 Active 240854648 Problem retirement current use of insulin Z79.4 Active 870237403 Problem Hyperlipidemia, unspecified hyperlipidemia type E78.5 Active 43526071 Problem Type 2 diabetes mellitus with diabetic polyneuropathy E11.42 Active 64886919 Problem Schizoaffective disorder, bipolar type F25.0 Active 92171320 Problem Chronic hepatitis C without hepatic coma B18.2 Active 164707021 Problem Other chronic pain G89.29 Active 90355729 Problem Essential hypertension I10 Active 89292124 Problem Gastroesophageal reflux disease without esophagitis K21.9 Active 863747639 Problem Social phobia F40.10 Active 63718509 Problem Bipolar affective disorder, remission status unspecified F31.9 Active 61710548 Problem Antisocial personality disorder F60.2 Active 23739883 Problem Uncomplicated alcohol dependence F10.20 Active 03291527 Problem Bipolar II disorder F31.81 Active 82892087 Problem Schizoaffective disorder, unspecified type F25.9 Active 60983217 Problem Alcohol dependence in remission F10.21 Active 710461774 ALLERGIES No Information ENCOUNTERS Encounter Location Date Diagnosis [facility] [address] [facility] [id number] [id number] Feb, [facility] [id number] [place] [address] Jan, [facility] [address], [place] [address] Jan, [facility] [id number] [place] [address] Jan, [place] [facility] [id number] [address] Jan, [facility] [address] [place] [id number] Dec, [facility] [address] [place] [id number] Dec, [place] [address] [facility] [id number], [place] [address] Dec, Bipolar II disorder F31.81 ; Alcohol dependence in remission F10.21 ; Schizoaffective disorder, unspecified type F25.9 ; Social phobia F40.10 and Antisocial personality disorder F60.2 [facility] [address] [place] [id number] Dec, Type 2 diabetes mellitus with diabetic polyneuropathy E11.42 ; retirement current use of insulin Z79.4 ; Hyperglycemia R73.9 ; Essential hypertension I10 ; Gastroesophageal reflux disease without esophagitis K21.9 ; Hyperlipidemia, unspecified hyperlipidemia type E78.5 ; Chronic hepatitis C without hepatic coma B18.2 ; Morbidly obese E66.01 ; Other chronic pain G89.29 and Schizoaffective disorder, bipolar type F25.[address] [id number] [address] Dec, Schizoaffective disorder, unspecified type F25.9 ; Bipolar affective disorder, remission status unspecified F31.9 ; Social phobia F40.10 ; Antisocial personality disorder F60.2 and Uncomplicated alcohol dependence F10.20 IMMUNIZATIONS No Known Immunizations SOCIAL HISTORY Never Assessed REASON FOR VISIT [facility] mood PLAN OF CARE Activity Details Follow Up Next available Reason: VITAL SIGNS MEDICATIONS Medication Instructions Dosage Frequency Start Date End Date Duration Status Clozapine 50 MG Orally Once a day 1 tablet 24h 30 day(s) Unknown Mucinex 600 MG Orally every 12 hrs 1 tablet as needed 12h Unknown Ranitidine HCl 150 MG Orally Once a day 1 capsule at bedtime 24h 30 day(s) Unknown Invega Sustenna 234 MG/1.5ML 1.5 ml 30 day(s) Unknown Acetaminophen 325 MG Orally every 4 hrs 1 tablet as needed 4h Unknown Advair Diskus 250-50 MCG/DOSE as directed Unknown Saline Nasal [place] 0.65 % Nasally every 2 hrs 2 sprays in each nostril as needed Unknown Incruse Ellipta 62.5 MCG/INH Inhalation Once a day 1 puff 24h Unknown Gabapentin 800 MG Orally Twice a day 1 tablet 12h 30 day(s) Unknown Acamprosate Calcium 333 MG Orally Three times a day 1 tablet 8h 30 day(s) Unknown Fluticasone Propionate (Inhal) 50 MCG/BLIST Inhalation Twice a day 1 puff 12h Unknown Ibuprofen 200 MG Orally Three times a day 1 tablet with food or milk as needed 8h Unknown Chlorthalidone 25 MG Orally Once a day 1 tablet in the morning with food 24h 30 day(s) Unknown Diclofenac Sodium 1 % as directed Unknown Deloris-[place] Original 325 MG Orally Twice a day 2 tablets as needed 12h Unknown Spironolactone 25 MG 1 tablet 30 day(s) Unknown Celecoxib 200 MG Orally Once a day 1 capsule with food 24h 30 day(s) Unknown NovoLog Flexpen 100 UNIT/ML as directed Unknown Melatonin 5 MG Orally Once a day 1 tablet at bedtime as needed with food 24h 30 day(s) Unknown Metoprolol Succinate ER 100 MG Orally Once a day 1 tablet 24h 30 day( s) Unknown GlucaGen HypoKit 1 MG as directed Unknown Zofran ODT 4 MG Orally every 4 hrs 1 tablet on the tongue and allow to dissolve as needed 4h Unknown Milk of Magnesia 7.75 % Orally Four times a day 5 ml as needed 6h Unknown Atorvastatin Calcium 40 MG Orally Once a day 1 tablet 24h 30 day(s) Unknown Mylanta 200-200-20 MG Orally Six times a day 2 tablets between meals and at bedtime as needed 4h Unknown Levemir Flexpen 100 UNIT/ML as directed Unknown Oxycodone HCl 100 MG/5ML Orally every 6 hrs 1 ml as needed 6h Unknown Topiramate 50 MG Orally Twice a day 1 tablet 12h 30 day(s) Unknown Pepto-Bismol 262 MG/15ML Orally 8 time(s) a day 30 ml as needed Unknown Lisinopril 40 MG Orally Once a day 1 tablet 24h 30 day(s) Unknown Tizanidine HCl 4 MG Orally Three times a day 1 tablet as needed 8h Unknown Multivitamin - as directed Unknown Clozapine 25 MG Orally Once a day 1 tablet 24h 30 day(s) Unknown Trulicity 1.5 MG/0.5ML Subcutaneous once weekly as directed Dec, May, 4 weeks Unknown BusPIRone HCl 10 MG Orally Twice a day 1 tablet 12h Unknown Cetirizine HCl 10 MG Orally Once a day 1 tablet 24h 30 day(s) Unknown DuoNeb 0.5-2.5 (3) MG/3ML Inhalation every 6 hrs 3 ml 6h Unknown RESULTS No Results PROCEDURES Procedure Date Ordered Result Body Site [facility] VISIT MENTAL HEALTH ESTAB PT Jan 18, 2018 Psychotherapy, patient &/family, 60 minutes, established patient Jan 18, 2018 INSTRUCTIONS MEDICATIONS ADMINISTERED No Known Medications MEDICAL [...]
[2018-02-01 15:57] LABS: BASOPHILS % (AUTO) 0 % (0-10); EOSINOPHILS # (AUTO) 0.1 10^3/uL (0.0-0.3); EOSINOPHILS % (AUTO) 1 % (0-10); HEMATOCRIT 36 % (40-54); HEMOGLOBIN 12.1 G/DL (13.3-17.7); LYMPHOCYTES # (AUTO) 1.7 X 10^3 (1.0-4.0); LYMPHOCYTES % (AUTO) 17 % (12-44); MEAN CORPUSCULAR HEMOGLOBIN 28 PG (25-34); MEAN CORPUSCULAR HGB CONC 33 G/DL (32-36); MEAN CORPUSCULAR VOLUME 84 FL (80-99); MEAN PLATELET VOLUME 10.5 FL (7.4-10.4); MONOCYTES # (AUTO) 0.7 X 10^3 (0.0-1.0); MONOCYTES % (AUTO) 7 % (0-12); NEUTROPHILS # (AUTO) 7.3 X 10^3 (1.8-7.8); NEUTROPHILS % (AUTO) 75 % (42-75); PLATELET COUNT 245 10^3/uL (130-400); RED BLOOD COUNT 4.33 10^6/uL (4.35-5.85); RED CELL DISTRIBUTION WIDTH 15.5 % (10.0-14.5); WHITE BLOOD COUNT 9.8 10^3/uL (4.3-11.0)
[2018-02-01] MEDS ORDERED: fentaNYL INJECTION 100 MCG/2 ML AMP IVP ONE (16:00)
[2018-02-01 16:16] LABS: ALANINE AMINOTRANSFERASE 27 U/L (0-55); ALBUMIN 4.5 GM/DL (3.2-4.5); ALKALINE PHOSPHATASE 65 U/L (40-136); BILIRUBIN,TOTAL 0.4 MG/DL (0.1-1.0); BUN/CREATININE RATIO 12; CALCIUM 9.5 MG/DL (8.5-10.1); CARBON DIOXIDE 25 MMOL/L (21-32); CHLORIDE 91 MMOL/L (98-107); CREATININE SERUM 0.77 MG/DL (0.60-1.30); GFR ESTIMATED > 60; GLUCOSE 124 MG/DL (70-105); POTASSIUM 3.8 MMOL/L (3.6-5.0); SODIUM 126 MMOL/L (135-145); TOTAL PROTEIN 7.4 GM/DL (6.4-8.2)
--- NOTE | 2018-02-01 16:18 | ED Hip Pain/Injury ---
General Chief Complaint: Hip/Pelvic Problems Stated Complaint: FEET PAIN Nursing Triage Note: PT ARRIVED VIA STRETCHER BY EMS, PT STATES HE SUFFERES FROM CHRONIC HIP PAIN THAT HAS DRAMATICALLY INCREASED OVER THE LAST TWO DAYS. 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 PT DENIES FALL OR ANY OTHER KNOWN ORGANIC CAUSE FOR PAIN. Source: patient Exam Limitations: no limitations History of Present Illness Date Seen by Provider: Feb 01, 2018 Time Seen by Provider: 15:30 Initial Comments The patient is a 42-year-old white male from the senior living. He was sent here by his senior living with complaints of hip pain. 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 He reports that over the last 2 days he is experienced rather severe pain in his hips and feet bilaterally. There has been no fall or other mishap. He reports that he had been able to walk reasonably well prior to this time but has been able to only walk a few steps in his room by furniture surfing. Timing/Duration: week Location: hip (R), hip (L) Method of Injury: unknown Allergies and Home Medications Allergies Coded Allergies: pecan nut (Verified Allergy, Unknown, 01/22/18) tramadol (Verified Allergy, Unknown, 01/22/18) walnut (Verified Allergy, Unknown, 01/22/18) Home Medications Acamprosate Calcium 333 Mg Tablet.dr, 2 TAB PO TID, (Reported) Acetaminophen 325 Mg Tablet, 650 MG PO Q6H PRN for PAIN-MILD, (Reported) TAKES 2 (325MG) TABLETS Aspirin/Sod Bicarb/Citric Acid 1 Each Tablet.eff, 2 TAB PO Q4H PRN for INDIGESTION, (Reported) Atorvastatin Calcium 40 Mg Tablet, 40 MG PO HS, (Reported) Bismuth Subsalicylate 262 Mg/15 Ml Oral.susp, 15 ML PO Q6H PRN for STOMACH UPSET , (Reported) Buspirone HCl 10 Mg Tablet, 20 MG PO QID, (Reported) TAKES 2 (10MG) TABLETS Celecoxib 200 Mg Capsule, 200 MG PO DAILY, (Reported) Cetirizine HCl 10 Mg Tablet, 10 MG PO DAILY, (Reported) Clonazepam 1 Mg Tablet, 1 MG PO BID, (Reported) Clozapine 25 Mg Tablet, 25 MG PO DAILY, (Reported) Clozapine 50 Mg Tablet, 50 MG PO 1700, (Reported) Diclofenac Sodium 100 Gm Gel..gram., 4 GM TP Q12H PRN for JOINT PAIN, (Reported) Dulaglutide 1.5 Mg/0.5 Ml Pen.injctr, 1.5 MG SQ We@1200, (Reported) Fluticasone Propionate 16 Gm [place].susp, 2 SPRAYS NS DAILY, (Reported) Fluticasone/Salmeterol 1 Each Blst.w.dev, 1 PUFF IH BID, (Reported) Gabapentin 800 Mg Tablet, 800 MG PO 0900,1200,1700, (Reported) Glucagon,Human Recombinant 1 Mg/Kit Soln, 1 MG IM UD PRN for BS<50, (Reported) Guaifenesin 600 Mg Tab.er.12h, 900 MG PO BID, (Reported) TAKES 1 & 1/2 (600MG) TABLET Insulin Aspart 300 Units/3 Ml Solution, 8 UNITS SQ TIDAC, (Reported) Insulin Aspart 300 Units/3 Ml Solution, SQ TIDAC, (Reported) 150-199=5 UNITS 200-249=15 UNITS 250-299=20 UNITS 300-399=25 UNITS 400+ = 30 UNITS NOTIFY PCP IF <60 OR >400 Insulin Detemir 100 Unit/1 Ml Insuln.pen, 54 UNIT SQ BID, (Reported) Ipratropium/Albuterol Sulfate 3 Ml Ampul.neb, 3 ML NEB Q6H PRN for SHORTNESS OF BREATH, (Reported) Lisinopril 40 Mg Tablet, 40 MG PO BID, (Reported) Mag Hydrox/Al Hydrox/Simeth 30 Ml Oral.susp, 10 ML PO Q6H PRN for INDIGESTION, ( Reported) Magnesium Hydroxide 400 Mg/5 Ml Oral.susp, 30 ML PO DAILY PRN for CONSTIPATION- 7TH LINE, (Reported) Melatonin 5 Mg Capsule, 5 MG PO HS PRN for SLEEP, (Reported) Metoprolol Succinate 100 Mg Tab.er.24h, 100 MG PO BID, (Reported) Multivitamin with Minerals 1 Each Tablet, 1 TAB PO DAILY, (Reported) Ondansetron 4 Mg Tab.rapdis, 4 MG SL Q8H PRN for NAUSEA/VOMITING-1ST LINE, ( Reported) Oxycodone HCl 20 Mg/1 Ml Oral.conc, 0.25 ML PO 0500,1100,1700,2300, (Reported) Paliperidone Palmitate 234 Mg/1.5 Ml Syringe, 234 MG IM MONTHLY ON THE , ( Reported) TAKES AT BEDTIME Ranitidine HCl 150 Mg Tablet, 150 MG PO BID, (Reported) Sodium Chloride 45 Ml [place], 2 SPRAYS NS Q12H PRN for DRYNESS/CONGESTION, ( Reported) Spironolactone 25 Mg Tablet, 25 MG PO DAILY, (Reported) Tizanidine HCl 4 Mg Tablet, 4 MG PO 0900,1500,2100, (Reported) Topiramate 50 Mg Tablet, 50 MG PO DAILY, (Reported) Umeclidinium [place] 62.5 Mcg Blst.w.dev, 1 PUFF IH DAILY, (Reported) Review of Systems Constitutional: see HPI EENTM: no symptoms reported Respiratory: no symptoms reported Gastrointestinal: no symptoms reported Genitourinary: no symptoms reported Musculoskeletal: see HPI Skin: see HPI Psychiatric/Neurological: See HPI Past Nilrvnz-Capucx-Rbmvrj Hx Patient Social History Alcohol Use: Denies Use Recreational Drug Use: No Drug of Choice: Marijuana Smoking Status: Current Everyday Smoker Type Used: Cigarettes Recent Foreign Travel: No Contact w/Someone Who Travel: No Recent Infectious Disease Expo: No Recent Hopitalizations: No Immunizations Up To Date PED Vaccines UTD: Yes Date of Pneumonia Vaccine: Mar 26, 2013 Seasonal Allergies Seasonal Allergies: Yes Past Medical History Surgeries: Yes (BILATERAL HIP REPAIR.) Appendectomy, Orthopedic Respiratory: Yes COPD Currently Using CPAP: No Currently Using BIPAP: No Cardiac: Yes High Cholesterol, Hypertension Neurological: No Developmental Disorder Sexually Transmitted Disease: No HIV/AIDS: No Genitourinary: No Gastrointestinal: Yes Gastroesophageal Reflux, Hepatitis Musculoskeletal: Yes (Bilateral hip sx) Endocrine: Yes Diabetes, Insulin dep HEENT: No Cancer: No Psychosocial: Yes Sleep Difficulties, Anxiety, Bipolar, Depression Integumentary: No Blood Disorders: No Adverse Reaction/Blood Tranf: No Family Medical History Cardiovascular disease 19 FATHER, Onset:40's - 50 Hypertension Physical Exam Vital Signs Vital Signs - First Documented 02/01/18 15:08 Temp 98.3 Pulse 102 Resp 20 B/P (MAP) 137/92 (107) Pulse Ox 97 O2 Delivery Room Air Capillary Refill : Less Than 3 Seconds Height, Weight, BMI Height: 5'3.00" Weight: 334lbs. 0.0oz. 151.801227zr; 58.6 BMI Method:Stated General Appearance: Mild Distress HEENT: Normal ENT Inspection Neck: Full Range of Motion, Normal Inspection, Non Tender, Supple Cardiovascular: Regular Rate, Rhythm, No Edema, No Gallop, No JVD, No Murmur, Normal Peripheral Pulses Respiratory: Chest Non Tender, Lungs Clear, Normal Breath Sounds, No Accessory Muscle Use, No Respiratory Distress, Accessory Muscle Use Gastrointestinal: Normal Bowel Sounds, No Organomegaly, No Pulsatile Mass, Non Tender, Soft, Other (megamorbidly obese) Extremity: Other (pedal edema no obvious joint abnormalities) Neurologic/Psychiatric: Alert, Oriented x3 Progress/Results/Core Measures Results/Orders Lab Results Laboratory Tests Test 02/01/18 15:42 Range/Units White Blood Count 9.8 4.3-11.0 10^3/uL Red Blood Count 4.33 L 4.35-5.85 10^6/uL Hemoglobin 12.1 L 13.3-17.7 G/DL Hematocrit 36 L 40-54 % Mean Corpuscular Volume 84 80-99 FL Mean Corpuscular Hemoglobin 28 25-34 PG Mean Corpuscular Hemoglobin Concent 33 32-36 G/DL Red Cell Distribution Width 15.5 H 10.0-14.5 % Platelet Count 245 130-400 10^3/uL Mean Platelet Volume 10.5 H 7.4-10.4 FL Neutrophils (%) (Auto) 75 42-75 % Lymphocytes (%) (Auto) 17 12-44 % Monocytes (%) (Auto) 7 0-12 % Eosinophils (%) (Auto) 1 0-10 % Basophils (%) (Auto) 0 0-10 % Neutrophils # (Auto) 7.3 1.8-7.8 X 10^3 Lymphocytes # (Auto) 1.7 1.0-4.0 X 10^3 Monocytes # (Auto) 0.7 0.0-1.0 X 10^3 Eosinophils # (Auto) 0.1 0.0-0.3 10^3/uL Basophils # (Auto) 0.0 0.0-0.1 10^3/uL Erythrocyte Sedimentation Rate 31 H 0-15 MM/HR Sodium Level 126 L 135-145 MMOL/L Potassium Level 3.8 3.6-5.0 MMOL/L Chloride Level 91 L 98-107 MMOL/L Carbon Dioxide Level 25 21-32 MMOL/L Anion Gap 10 5-14 MMOL/L Blood Urea Nitrogen 9 7-18 MG/DL Creatinine 0.77 0.60-1.30 MG/DL Estimat Glomerular Filtration Rate > 60 BUN/Creatinine Ratio 12 Glucose Level 124 H 70-105 MG/DL Calcium Level 9.5 8.5-10.1 MG/DL Corrected Calcium 9.1 8.5-10.1 MG/DL Total Bilirubin 0.4 0.1-1.0 MG/DL Aspartate Amino Transf (AST/SGOT) 19 5-34 U/L Alanine Aminotransferase (ALT/SGPT) 27 0-55 U/L Alkaline Phosphatase 65 40-136 U/L Total Protein 7.4 6.4-8.2 GM/DL Albumin 4.5 3.2-4.5 GM/DL My Orders Orders - NATHANIEL HICKEY MD Cbc With Automated Diff (02/01/18 15:26) Comprehensive Metabolic Panel (02/01/18 15:26) Erythrocyte Sedimentation Rate (02/01/18 15:26) Pelvis/Nick Hips 5> Views (02/01/18 15:26) Foot, Bilateral, 3 View (02/01/18 15:26) Fentanyl Injection (Sublimaze Injection (02/01/18 16:00) Medications Given in ED Current Medications Medications Dose Ordered Sig/Kenji Route Start Time Stop Time Status Last Admin Dose Admin Fentanyl Citrate 50 mcg ONCE ONCE IVP 02/01/18 16:00 02/01/18 16:01 DC 02/01/18 15:56 50 MCG Vital Signs/I&O 02/01/18 15:08 Temp 98.3 Pulse 102 Resp 20 B/P (MAP) 137/92 (107) Pulse Ox 97 O2 Delivery Room Air Blood Pressure Mean: 107 Departure Communication (Admissions) X-ray showed no significant pathology. Given his weight and diabetes neuropathy may well be a problem here. Impression Primary Impression: chronic bilateral lower extremity pain Disposition: HOME, SELF-CARE Condition: Stable/Unchanged Departure-Patient Inst. Decision time for Depature: 16:55 Referrals: [facility] (PCP[facility]Family) Primary Care Physician Add. Discharge Instructions: All discharge instructions reviewed with patient and/or family. Voiced understanding. See your provider for pain control strategies. NATHANIEL HICKEY MD Feb 01, 2018 16:18
[2018-02-01 16:32] LABS: ERYTHROCYTE SEDIMENTATION RATE 31 MM/HR (0-15)
--- NOTE | 2018-02-01 16:33 | Diagnostic Imaging Report ---
INDICATION: Bilateral foot pain. AP, oblique, and lateral views of both feet are obtained. No fracture or acute bony abnormality is seen. Joint spaces appear unremarkable. IMPRESSION: Negative bilateral feet. Dictated by: Dictated on workstation # [id number]
--- NOTE | 2018-02-01 16:45 | Diagnostic Imaging Report ---
PATIENT HISTORY: Chronic hip pain, increasing over the last 2 days. TECHNIQUE: AP view the pelvis. AP and lateral views of the bilateral hips. COMPARISON: None. FINDINGS: No acute fracture is seen in the pelvis or bilateral hips. The alignment appears normal. The femoral heads are well seated in the acetabula bilaterally. The joint spaces are generally preserved. There is a heterogeneous linear sclerotic appearance along the trabeculae of the femoral necks bilaterally which is symmetric and felt less likely to represent an acute lesion or neoplastic process. This could represent stress reaction. There is transitional anatomy at the lumbosacral junction. IMPRESSION: 1. Ill-defined heterogeneous sclerotic appearance along the trabeculae of the femoral necks bilaterally which is symmetric and nonspecific. This may represent stress response but no significant cortical thickening or evidence of fracture is seen. Bone infarct or symmetric enchondromas are thought less likely. 2. Transitional anatomy at the lumbosacral junction which can be a source of pain in some individuals. Dictated by: Dictated on workstation # [id number]
[2018-02-01 17:11] VITALS: BP 121/100
== END 2018-02-01 17:46 | disposition home or self-care (01) ==
LOC: EDUNIT# 15:06 → ER 15:07
DX: M79.671 Pain in right foot (principal); M79.672 Pain in left foot; G89.29 Other chronic pain; J44.9 Chronic obstructive pulmonary disease, unspecified; E78.00 Pure hypercholesterolemia, unspecified; I10 Essential (primary) hypertension; K21.9 Gastro-esophageal reflux disease without esophagitis; F41.9 Anxiety disorder, unspecified; F31.9 Bipolar disorder, unspecified; E11.9 Type 2 diabetes mellitus without complications; F12.10 Cannabis abuse, uncomplicated; F17.210 Nicotine dependence, cigarettes, uncomplicated; Z96.643 Presence of artificial hip joint, bilateral; Z90.89 Acquired absence of other organs; Z82.49 Family history of ischemic heart disease and other diseases of the circulatory system; Z87.19 Personal history of other diseases of the digestive system; Z88.6 Allergy status to analgesic agent; Z79.82 Long term (current) use of aspirin; Z79.51 Long term (current) use of inhaled steroids; Z79.4 Long term (current) use of insulin
CPT/HCPCS: 36415; 73523; 80053; 85025; 85652

== ENCOUNTER 2018-02-15 02:55 | Emergency (ER) | payer MEDICARE, MEDICAID ==
[~2018-02-15] VITALS: Ht 167.6 cm; Wt 151.5 kg
[2018-02-15] MEDS ORDERED: EPINEPHrine INJECTION 1 MG/ML AMP IJ ONE (02:58)
[2018-02-15] MEDS ORDERED: ATROPINE INJECTION 1 MG/10 ML SYR (ABBOTT) INJ ONE (02:58)
[2018-02-15] MEDS ORDERED: SODIUM BICARB 8.4% 50 MEQ/50 ML (ABBOTT) SYR INJ ONE (02:58)
[2018-02-15] MEDS ORDERED: NS 1000 ML IV BAG IV ONE (02:58)
--- OUTSIDE RECORDS SUMMARY | 2018-02-15 03:01 | XMS REPORT ---
Author Author ANGIE HANNON [facility] Address [address] [place] [address] Care Team Providers Care Wrapping Machine Tender Name Role Phone ANGIE HANNON Unavailable PROBLEMS Type Condition ICD9-CM Code [id number] Code Onset Dates Condition Status SNOMED Code Problem Gastroesophageal reflux disease without esophagitis K21.9 Active 614233688 Problem Schizoaffective disorder, bipolar type F25.0 Active 92655295 Problem Essential hypertension I10 Active 51455067 Problem Polydipsia R63.1 Active 56172641 Problem termite control representative current use of insulin Z79.4 Active 782092708 Problem Other chronic pain G89.29 Active 80002300 Problem Type 2 diabetes mellitus with diabetic polyneuropathy E11.42 Active 88412606 Problem Hyperlipidemia, unspecified hyperlipidemia type E78.5 Active 07039134 Problem Morbidly obese E66.01 Active 989550333 Problem Uncomplicated alcohol dependence F10.20 Active 45823958 Problem Schizoaffective disorder, unspecified type F25.9 Active 85644700 Problem Social phobia F40.10 Active 18785552 Problem Alcohol dependence in remission F10.21 Active 347685413 Problem Bipolar affective disorder, remission status unspecified F31.9 Active 55853220 Problem Bipolar II disorder F31.81 Active 42553023 Problem Antisocial personality disorder F60.2 Active 49896926 Problem Chronic hepatitis C without hepatic coma B18.2 Active 022201763 ALLERGIES No Information ENCOUNTERS Encounter Location Date Diagnosis [facility] [id number] [id number] Feb, [facility] [address] [id number] Jan, [facility] [address] [id number], [place] [address] Jan, [facility] [address], [place] [address] Jan, [id number] [place] [address] Jan, [facility] [address] [place] [id number] Jan, Hyponatremia E87.1 ; Polydipsia R63.1 ; Pain in left hip M25.552 ; Pain in right hip M25.551 and 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 [id number] [place] [address] 12 Jan, 2018 [id number] [place] [address] Jan, Pain in right hip M25.551 ; Pain in left hip M25.552 and Other chronic pain G89.29 [id number] [place] [address] Jan, [facility] [address] [place] [id number] Dec, [facility] [address] [place] [id number] Dec, [id number] [place] [address] Dec, Bipolar II disorder F31.81 ; Alcohol dependence in remission F10.21 ; Schizoaffective disorder, unspecified type F25.9 ; Social phobia F40.10 and Antisocial personality disorder F60.2 [facility] [address] [place] [id number] Dec, Type 2 diabetes mellitus with diabetic polyneuropathy E11.42 ; skilled nursing current use of insulin Z79.4 ; Hyperglycemia R73.9 ; Essential hypertension I10 ; Gastroesophageal reflux disease without esophagitis K21.9 ; Hyperlipidemia, unspecified hyperlipidemia type E78.5 ; Chronic hepatitis C without hepatic coma B18.2 ; Morbidly obese E66.01 ; Other chronic pain G89.29 and Schizoaffective disorder, bipolar type F25.[id number] [address] Dec, 2017 Schizoaffective disorder, unspecified type F25.9 ; Bipolar affective disorder, remission status unspecified F31.9 ; Social phobia F40.10 ; Antisocial personality disorder F60.2 and Uncomplicated alcohol dependence F10.20 IMMUNIZATIONS No Known Immunizations SOCIAL HISTORY Never Assessed REASON FOR VISIT Requests return call PLAN OF CARE VITAL SIGNS MEDICATIONS Unknown Medications RESULTS No Results PROCEDURES No Known procedures [...]
--- OUTSIDE RECORDS SUMMARY | 2018-02-15 03:01 | XMS REPORT ---
Author Author ANGIE HANNON [facility] Address [address] [place] [address] Care Team Providers Care Insurance Solicitor Name Role Phone ANGIE HANNON Unavailable PROBLEMS Type Condition ICD9-CM Code [id number] Code Onset Dates Condition Status SNOMED Code Problem Morbidly obese E66.01 Active 439226580 Problem intermediate current use of insulin Z79.4 Active 610394233 Problem Hyperlipidemia, unspecified hyperlipidemia type E78.5 Active 03271998 Problem Type 2 diabetes mellitus with diabetic polyneuropathy E11.42 Active 75288590 Problem Schizoaffective disorder, bipolar type F25.0 Active 67366758 Problem Chronic hepatitis C without hepatic coma B18.2 Active 849395873 Problem Other chronic pain G89.29 Active 55769666 Problem Essential hypertension I10 Active 24580280 Problem Gastroesophageal reflux disease without esophagitis K21.9 Active 100042777 Problem Social phobia F40.10 Active 20726114 Problem Bipolar affective disorder, remission status unspecified F31.9 Active 90623674 Problem Antisocial personality disorder F60.2 Active 90282699 Problem Uncomplicated alcohol dependence F10.20 Active 93513454 Problem Bipolar II disorder F31.81 Active 98790847 Problem Schizoaffective disorder, unspecified type F25.9 Active 42466235 Problem Alcohol dependence in remission F10.21 Active 580230607 ALLERGIES No Information ENCOUNTERS Encounter Location Date Diagnosis [facility] [address] [facility] [id number] [id number] Feb, [facility] [address] [address] Jan, [facility] [id number], [place] [address] Jan, [facility] [address] [place] [id number] Jan, [id number] [address] Jan, [address], [place] [address] Jan, Pain in right hip M25.551 ; Pain in left hip M25.552 and Other chronic pain G89.29 [address], [place] [address] Jan, [facility] [address] [place] [id number] Dec, [facility] [address] [place] [id number] Dec, [id number] [address] Dec, Bipolar II disorder F31.81 ; Alcohol dependence in remission F10.21 ; Schizoaffective disorder, unspecified type F25.9 ; Social phobia F40.10 and Antisocial personality disorder F60.2 [facility] [address] [place] [id number] Dec, Type 2 diabetes mellitus with diabetic polyneuropathy E11.42 ; intermediate current use of insulin Z79.4 ; Hyperglycemia R73.9 ; Essential hypertension I10 ; Gastroesophageal reflux disease without esophagitis K21.9 ; Hyperlipidemia, unspecified hyperlipidemia type E78.5 ; Chronic hepatitis C without hepatic coma B18.2 ; Morbidly obese E66.01 ; Other chronic pain G89.29 and Schizoaffective disorder, bipolar type F25.0 [id number], [place] [address] Dec, Schizoaffective disorder, unspecified type F25.9 ; Bipolar affective disorder, remission status unspecified F31.9 ; Social phobia F40.10 ; Antisocial personality disorder F60.2 and Uncomplicated alcohol dependence F10.20 IMMUNIZATIONS No Known Immunizations SOCIAL HISTORY Never Assessed REASON FOR VISIT Narcotic refill/ fluid restriction PLAN OF CARE VITAL SIGNS MEDICATIONS Medication Instructions Dosage Frequency Start Date End Date Duration Status Oxycodone HCl 100 MG/5ML Orally every 6 hrs 1 ml as needed 6h 10 Jan, 2018 Jan, 14 days Active RESULTS No Results PROCEDURES No Known [...]
[2018-02-15] MEDS ORDERED: NS IV 1000 ML 1,000 ML ONE (03:27)
[2018-02-15 03:32] LABS: HEMOGLOBIN 10.2 G/DL (13.3-17.7); MEAN PLATELET VOLUME 11.9 FL (7.4-10.4); RED BLOOD COUNT 3.57 10^6/uL (4.35-5.85); RED CELL DISTRIBUTION WIDTH 16.2 % (10.0-14.5); WHITE BLOOD COUNT 12.8 10^3/uL (4.3-11.0)
[2018-02-15 03:52] LABS: ALANINE AMINOTRANSFERASE 32 U/L (0-55); ALBUMIN 3.2 GM/DL (3.2-4.5); ALKALINE PHOSPHATASE 59 U/L (40-136); BILIRUBIN,TOTAL 0.2 MG/DL (0.1-1.0); BUN/CREATININE RATIO 9; CALCIUM 8.8 MG/DL (8.5-10.1); CARBON DIOXIDE 18 MMOL/L (21-32); CHLORIDE 85 MMOL/L (98-107); CREATININE SERUM 1.29 MG/DL (0.60-1.30); GFR ESTIMATED > 60; GLUCOSE 384 MG/DL (70-105); MAGNESIUM 2.6 MG/DL (1.8-2.4); POTASSIUM 6.4 MMOL/L (3.6-5.0); TOTAL PROTEIN 5.5 GM/DL (6.4-8.2)
[2018-02-15 04:08] LABS: SODIUM 123 MMOL/L (135-145)
--- NOTE | 2018-02-15 04:26 | ED CPR ---
HPI-CPR General Chief Complaint: Code Blue Stated Complaint: CODE Source of Information: Patient Exam Limitations: No Limitations History of Present Illness Date Seen by Provider: Feb 15, 2018 Time Seen by Provider: 02:55 Initial Comments Here by EMS with report of respiratory failure and ultimately cardiopulmonary arrest. This was witnessed at the home and CPR started shortly afterwards by emergency responders. EMS arrived and noted the patient to be pulseless and apneic. CPR was continued. IO was placed by EMS and I gel was placed for airway control. CPR continued. Patient received 5 rounds of epinephrine in the field without return of spontaneous circulation. Significant amount secretions noted orally and he was suctioned by EMS. Transported emergently to Hospital were he arrives with CPR in progress and without pulse. Apparently he was home visiting his sister from the local alf. Does have significant comorbidities including COPD, obstructive sleep apnea, diabetes mellitus, hypertension, high cholesterol and mental health disorders. Patient is a smoker and continues to smoke. He was on oxygen at home. The sister reports that there was flashing yellow light possibly indicating failure at the time of the incident. She was home and he called her to his room and was stating that he couldn't breathe and that was when EMS was called. Had previous hospitalization a few weeks ago for hyponatremia. Significant underlying comorbidities. Initial Complaints: Collapsed, Dyspnea Witnessed Arrest: Yes Bystander CPR: Yes Down-Time Before ACLS: 5 Paramedics Initial Findings: Asystole, No Respirations Pre Hospital Treatment: Bag Valve Mask, Oxygen, IV Fluids, Epinephrine (mg) (5) Allergies and Home Medications Allergies Coded Allergies: pecan nut (Verified Allergy, Unknown, 01/22/18) tramadol (Verified Allergy, Unknown, 01/22/18) walnut (Verified Allergy, Unknown, 01/22/18) Home Medications Acamprosate Calcium 333 Mg Tablet.dr, 2 TAB PO TID, (Reported) Acetaminophen 325 Mg Tablet, 650 MG PO Q6H PRN for PAIN-MILD, (Reported) TAKES 2 (325MG) TABLETS Aspirin/Sod Bicarb/Citric Acid 1 Each Tablet.eff, 2 TAB PO Q4H PRN for INDIGESTION, (Reported) Atorvastatin Calcium 40 Mg Tablet, 40 MG PO HS, (Reported) Bismuth Subsalicylate 262 Mg/15 Ml Oral.susp, 15 ML PO Q6H PRN for STOMACH UPSET , (Reported) Buspirone HCl 10 Mg Tablet, 20 MG PO QID, (Reported) TAKES 2 (10MG) TABLETS Celecoxib 200 Mg Capsule, 200 MG PO DAILY, (Reported) Cetirizine HCl 10 Mg Tablet, 10 MG PO DAILY, (Reported) Clonazepam 1 Mg Tablet, 1 MG PO BID, (Reported) Clozapine 25 Mg Tablet, 25 MG PO DAILY, (Reported) Clozapine 50 Mg Tablet, 50 MG PO 1700, (Reported) Diclofenac Sodium 100 Gm Gel..gram., 4 GM TP Q12H PRN for JOINT PAIN, (Reported) Dulaglutide 1.5 Mg/0.5 Ml Pen.injctr, 1.5 MG SQ We@1200, (Reported) Fluticasone Propionate 16 Gm [place].susp, 2 SPRAYS NS DAILY, (Reported) Fluticasone/Salmeterol 1 Each Blst.w.dev, 1 PUFF IH BID, (Reported) Gabapentin 800 Mg Tablet, 800 MG PO 0900,1200,1700, (Reported) Glucagon,Human Recombinant 1 Mg/Kit Soln, 1 MG IM UD PRN for BS<50, (Reported) Guaifenesin 600 Mg Tab.er.12h, 900 MG PO BID, (Reported) TAKES 1 & 1/2 (600MG) TABLET Insulin Aspart 300 Units/3 Ml Solution, 8 UNITS SQ TIDAC, (Reported) Insulin Aspart 300 Units/3 Ml Solution, SQ TIDAC, (Reported) 150-199=5 UNITS 200-249=15 UNITS 250-299=20 UNITS 300-399=25 UNITS 400+ = 30 UNITS NOTIFY PCP IF <60 OR >400 Insulin Detemir 100 Unit/1 Ml Insuln.pen, 54 UNIT SQ BID, (Reported) Ipratropium/Albuterol Sulfate 3 Ml Ampul.neb, 3 ML NEB Q6H PRN for SHORTNESS OF BREATH, (Reported) Lisinopril 40 Mg Tablet, 40 MG PO BID, (Reported) Mag Hydrox/Al Hydrox/Simeth 30 Ml Oral.susp, 10 ML PO Q6H PRN for INDIGESTION, ( Reported) Magnesium Hydroxide 400 Mg/5 Ml Oral.susp, 30 ML PO DAILY PRN for CONSTIPATION- 7TH LINE, (Reported) Melatonin 5 Mg Capsule, 5 MG PO HS PRN for SLEEP, (Reported) Metoprolol Succinate 100 Mg Tab.er.24h, 100 MG PO BID, (Reported) Multivitamin with Minerals 1 Each Tablet, 1 TAB PO DAILY, (Reported) Ondansetron 4 Mg Tab.rapdis, 4 MG SL Q8H PRN for NAUSEA/VOMITING-1ST LINE, ( Reported) Oxycodone HCl 20 Mg/1 Ml Oral.conc, 0.25 ML PO 0500,1100,1700,2300, (Reported) Paliperidone Palmitate 234 Mg/1.5 Ml Syringe, 234 MG IM MONTHLY ON THE , ( Reported) TAKES AT BEDTIME Ranitidine HCl 150 Mg Tablet, 150 MG PO BID, (Reported) Sodium Chloride 45 Ml [place], 2 SPRAYS NS Q12H PRN for DRYNESS/CONGESTION, ( Reported) Spironolactone 25 Mg Tablet, 25 MG PO DAILY, (Reported) Tizanidine HCl 4 Mg Tablet, 4 MG PO 0900,1500,2100, (Reported) Topiramate 50 Mg Tablet, 50 MG PO DAILY, (Reported) Umeclidinium [place] 62.5 Mcg Blst.w.dev, 1 PUFF IH DAILY, (Reported) Patient Home Medication List Home Medication List Reviewed: Yes Review of Systems Review of Systems Constitutional: see HPI Other Comments Unable to complete review of systems due to unresponsiveness and clinical condition Past Unttjdx-Xtdtux-Zznudc Hx Past Med/Social Hx: Reviewed Nursing Past Med/Soc Hx Patient Social History Drug of Choice: Marijuana Smoking Status: Current Everyday Smoker Type Used: Cigarettes Recent Foreign Travel: No Contact w/Someone Who Travel: No Recent Hopitalizations: No Immunizations Up To Date PED Vaccines UTD: Yes Date of Pneumonia Vaccine: Mar 26, 2013 Seasonal Allergies Seasonal Allergies: Yes Past Medical History Surgeries: Yes (BILATERAL HIP REPAIR.) Appendectomy, Orthopedic Respiratory: Yes COPD Currently Using CPAP: No Currently Using BIPAP: No Cardiac: Yes High Cholesterol, Hypertension Neurological: No Developmental Disorder Sexually Transmitted Disease: No HIV/AIDS: No Genitourinary: No Gastrointestinal: Yes Gastroesophageal Reflux, Hepatitis Musculoskeletal: Yes (Bilateral hip sx) Endocrine: Yes Diabetes, Insulin dep HEENT: No Cancer: No Psychosocial: Yes Sleep Difficulties, Anxiety, Bipolar, Depression Integumentary: No Blood Disorders: No Adverse Reaction/Blood Tranf: No Family Medical History Reviewed Nursing Family Hx Cardiovascular disease 19 FATHER, Onset:40's - 50 Hypertension Physical Exam Vital Signs Capillary Refill : Height, Weight, BMI Height: 5'3.00" Weight: 334lbs. 0.0oz. 151.159184jz; 58.6 BMI Method:Stated General Appearance: Obese, Other (unresponsive) HEENT: Other (fixed and dilated) Respiratory: Other (coarse breath sounds with bagging and respiratory failure) Cardiovascular: Other (pulseless) Gastrointestinal: Soft, Other (obese) Neurologic/Psychiatric: Other (unresponsive) Skin: Cool, Pallor Progress/Results/Core Measures Results/Orders Lab Results Laboratory Tests Test 02/15/18 03:08 02/15/18 03:15 Range/Units Glucometer 386 H 70-110 MG/DL White Blood Count 12.8 H 4.3-11.0 10^3/uL Red Blood Count 3.57 L 4.35-5.85 10^6/uL Hemoglobin 10.2 L 13.3-17.7 G/DL Hematocrit 32 L 40-54 % Mean Corpuscular Volume 89 80-99 FL Mean Corpuscular Hemoglobin 29 25-34 PG Mean Corpuscular Hemoglobin Concent 32 32-36 G/DL Red Cell Distribution Width 16.2 H 10.0-14.5 % Platelet Count 127 L 130-400 10^3/uL Mean Platelet Volume 11.9 H 7.4-10.4 FL Sodium Level 123 *L 135-145 MMOL/L Potassium Level 6.4 H 3.6-5.0 MMOL/L Chloride Level 85 L 98-107 MMOL/L Carbon Dioxide Level 18 L 21-32 MMOL/L Anion Gap 20 H 5-14 MMOL/L Blood Urea Nitrogen 11 7-18 MG/DL Creatinine 1.29 0.60-1.30 MG/DL Estimat Glomerular Filtration Rate > 60 BUN/Creatinine Ratio 9 Glucose Level 384 H 70-105 MG/DL Calcium Level 8.8 8.5-10.1 MG/DL Corrected Calcium 9.4 8.5-10.1 MG/DL Magnesium Level 2.6 H 1.8-2.4 MG/DL Total Bilirubin 0.2 0.1-1.0 MG/DL Aspartate Amino Transf (AST/SGOT) 40 H 5-34 U/L Alanine Aminotransferase (ALT/SGPT) 32 0-55 U/L Alkaline Phosphatase 59 40-136 U/L Troponin I < 0.30 <0.30 NG/ML Total Protein 5.5 L 6.4-8.2 GM/DL Albumin 3.2 3.2-4.5 GM/DL My Orders Orders - YAMILKA GO MD Cbc No Diff (02/15/18 03:27) Comprehensive Metabolic Panel (02/15/18:) Troponin I (02/15/18:27) Magnesium (02/15/18:) Lactic Acid Analyzer (02/15/18) Arterial Blood Gas (02/15/18:) Ns Iv 1000 Ml (Sodium Chloride 0.9%) (02/15/18:) Hepatitis Panel Acute (02/15/18 03:46) Progress Progress Note : Progress Note Seen and evaluated on arrival by EMS. CPR continued. Patient intubated with 80 ET tube via video scope for airway control. Frothy mucus noted in airway. Suctioned afterwards by RT. CPR continued and multiple rounds of epinephrine given to a total of 5 mg for PEA. 2 mg of atropine were given as well for bradycardic PEA and one amp of bicarbonate was given. Throughout resuscitation efforts, patient never had palpable pulse or return of spontaneous circulation. Patient did have improvement and O2 saturation with good CPR and achieved mid 90s. End-tidal CO2 40s to 50s trailed off to nil with stopping CPR. I did speak with the patient's sister multiple times during the resuscitation event forming her of my concerns. Bedside ultrasound showed minimal cardiac activity. Pacing was attempted for the bradycardia and this did not result and significant capture or cardiac activity or pulse response. 1 L of normal saline was given as well. Despite all efforts and continued attempts, we were unable to achieve return of circulation and code was called at 0333 with same time of . 0350: I did discuss the case with the cane loader. Due to multiple comorbidities and advanced diseases including lung and cardiovascular, corner does not believe this is a cane loader case and I agree. Patient has disease processes indicating reasonable cause of . Likely respiratory failure from advanced COPD to cardiac failure. I did discuss all of this with the patient's sister. All QUESTIONS answered. The professor of literature notified and assisting. Departure Impression Primary Impression: Cardiopulmonary arrest Disposition: 20 Condition: Departure-Patient Inst. Decision time for Depature: 03:33 Referrals: [facility] (PCP/Family) Primary Care Physician Copy Copies To 1: CRISTINA FELIX MD, TIMOTHY D MD Feb 15, 2018 04:26
[2018-02-15 06:28] VITALS: BP 0/0
[2018-02-18 07:25] LABS: HEPATITIS C ANTIBODY C Reactive (Non-Reactive)
== END 2018-02-15 06:29 | disposition expired ==
LOC: ER 02:55 → EDUNIT# 02:56 → ER 02:57
DX: I46.9 Cardiac arrest, cause unspecified (principal); J44.9 Chronic obstructive pulmonary disease, unspecified; G47.33 Obstructive sleep apnea (adult) (pediatric); E11.9 Type 2 diabetes mellitus without complications; I10 Essential (primary) hypertension; E78.00 Pure hypercholesterolemia, unspecified; F41.9 Anxiety disorder, unspecified; F31.9 Bipolar disorder, unspecified; K21.9 Gastro-esophageal reflux disease without esophagitis; F12.10 Cannabis abuse, uncomplicated; F17.210 Nicotine dependence, cigarettes, uncomplicated; Z87.19 Personal history of other diseases of the digestive system; Z88.6 Allergy status to analgesic agent; Z96.643 Presence of artificial hip joint, bilateral; Z82.49 Family history of ischemic heart disease and other diseases of the circulatory system; Z90.49 Acquired absence of other specified parts of digestive tract; Z79.82 Long term (current) use of aspirin; Z79.51 Long term (current) use of inhaled steroids; Z79.4 Long term (current) use of insulin
CPT/HCPCS: 31500; 36415; 80053; 80074; 82962; 83735; 84484; 85027; 93041; 99291